=== PATIENT | female | born 1965 | race Caucasian/White ===

== ENCOUNTER 2018-07-23 13:24 | Emergency (ER) | payer MEDICAID ==
[~2018-07-23] VITALS: Ht 160 cm; Wt 57.7 kg
[~2018-07-23 13:24] MED LIST: NO HOME MEDS
[2018-07-23 13:33] VITALS: BP 144/79
[2018-07-23 14:31] LABS: BASOPHILS # (AUTO) 0.1 X10'3 (0-0.2); BASOPHILS % (AUTO) 1.1 % (0-1); EOSINOPHILS # (AUTO) 0.2 X10'3 (0-0.9); EOSINOPHILS % (AUTO) 3.1 % (0-6); HEMATOCRIT 38.9 % (35.0-45.0); HEMOGLOBIN 13.3 g/dl (12.0-16.0); LYMPHOCYTES % (AUTO) 20.2 % (21-51); MEAN CORPUSCULAR HEMOGLOBIN 32.4 PG (27.0-31.0); MEAN CORPUSCULAR HGB CONC 34.3 g/dL (33.0-36.5); MEAN CORPUSCULAR VOLUME 94.5 FL (78-98); MEAN PLATELET VOLUME 7.8 FL (7.4-10.4); MONOCYTES # (AUTO) 0.8 X10'3 (0-0.9); MONOCYTES % (AUTO) 17.3 % (2-12); NEUTROPHILS # (AUTO) 2.9 X10'3 (1.8-7.7); NEUTROPHILS % (AUTO) 58.3 % (42-75); PLATELET COUNT 204 X10'3 (140-440); RED BLOOD COUNT 4.12 X10'6 (4.20-5.60); RED CELL DISTRIBUTION WIDTH 12.7 % (11.5-14.5); WHITE BLOOD COUNT 4.9 X10'3 (4.5-11.0)
[2018-07-23 14:34] LABS: CLARITY,URINE CLEAR (Clear); COLOR,URINE STRAW (Yellow); GLUCOSE, URINE NEGATIVE (Neg); KETONES,URINE NEGATIVE (Neg); LEUKOCYTE ESTERASE ,URINE NEGATIVE (Neg); NITRITES, URINE NEGATIVE (Neg); OCCULT BLOOD,URINE NEGATIVE (Neg); PROTEIN,URINE NEGATIVE (Neg); UROBILINOGEN,URINE 0.2 E.U/dL (0.2-1.0)
[2018-07-23 14:43] LABS: UA COLLECTION TYPE CLN CATCH MIDSTREAM
[2018-07-23 14:46] LABS: ALANINE AMINOTRANSFERASE 32 U/L (12-78); ALBUMIN 3.5 G/DL (3.4-5.0); ALBUMIN/GLOBULIN RATIO 1.1 (1.1-1.5); ALKALINE PHOSPHATASE 78 IU/L (46-116); ANION GAP 8 (8-16); ASPARTATE AMINO TRANSFERASE 35 U/L (10-37); BILIRUBIN,TOTAL 0.2 MG/DL (0.1-1.0); BLOOD UREA NITROGEN 5 MG/DL (7-18); BUN/CREATININE RATIO 7.9 (6.6-38.0); CALCIUM 8.7 MG/DL (8.5-10.1); CHLORIDE 98 MMOL/L (99-107); CREATININE 0.63 MG/DL (0.40-0.90); GLUCOSE 95 MG/DL (70-104); LIPASE 150 U/L (73-393); POTASSIUM 4.1 MMOL/L (3.5-5.1); SODIUM 131 MMOL/L (135-145); TOTAL CARBON DIOXIDE 25.3 MMOL/L (24-32); TOTAL PROTEIN 6.6 G/DL (6.4-8.2); eGFR > 90 ML/MIN
[2018-07-23] MEDS ORDERED: BENZ-16 PO (15:19)
[2018-07-23] MEDS ORDERED: GUAI237S46 PO (15:19)
[2018-07-23] MEDS ORDERED: ketorolac tromethamine 15mg/ml inj. IM ONE (15:20)
[2018-07-23] MEDS ORDERED: guaiFENesin/codeine phos 10ml UD oral syrup PO ONE (15:20)
== END 2018-07-23 15:38 | disposition home or self-care (01) ==
LOC: ER 13:25
DX: J20.9 Acute bronchitis, unspecified (principal); M94.0 Chondrocostal junction syndrome [Tietze]; G89.29 Other chronic pain; M54.9 Dorsalgia, unspecified; F17.210 Nicotine dependence, cigarettes, uncomplicated; Z98.51 Tubal ligation status; Z90.710 Acquired absence of both cervix and uterus; Z56.0 Unemployment, unspecified; Z88.1 Allergy status to other antibiotic agents
CPT/HCPCS: 36415; 71046; 80053; 81003; 83690; 85025; 85610; 96372; 99284; J1885

== ENCOUNTER 2018-10-25 14:18 | Emergency (ER) | payer MEDICAID ==
[~2018-10-25] VITALS: Ht 160 cm; Wt 60.0 kg
[2018-10-25 14:47] VITALS: BP 168/97
[2018-10-25] MEDS ORDERED: TRIA15OI2 TOP (15:34)
[2018-10-25] MEDS ORDERED: DOXY100C43 PO (15:34)
[2018-10-25] MEDS ORDERED: VALA10002 PO (15:34)
== END 2018-10-25 15:53 | disposition home or self-care (01) ==
LOC: ER 14:18
DX: L01.00 Impetigo, unspecified (principal); B00.9 Herpesviral infection, unspecified; J44.1 Chronic obstructive pulmonary disease with (acute) exacerbation; G89.29 Other chronic pain; F10.99 Alcohol use, unspecified with unspecified alcohol-induced disorder; Z90.710 Acquired absence of both cervix and uterus; Z98.51 Tubal ligation status; Z56.0 Unemployment, unspecified; Z88.1 Allergy status to other antibiotic agents; Z88.2 Allergy status to sulfonamides; Z88.8 Allergy status to other drugs, medicaments and biological substances; Y90.9 Presence of alcohol in blood, level not specified
CPT/HCPCS: 99283

== ENCOUNTER 2018-12-17 11:26 | Emergency (ER) | payer MEDICAID ==
[~2018-12-17] VITALS: Ht 160 cm; Wt 59.3 kg
[~2018-12-17 11:26] MED LIST changes: +TRIA15OI2 TOP; +VALA10002 PO
[2018-12-17] MEDS ORDERED: mupirocin 2% ointment 22GM TP STA (12:42)
[2018-12-17] MEDS ORDERED: AMOX-422 PO (12:43)
[2018-12-17] MEDS ORDERED: predniSONE 20 mg tablet PO ONE (12:45)
[2018-12-17] MEDS ORDERED: diphenhydrAMINE 50 mg/ml inj IM ONE (12:45)
--- NOTE | 2018-12-17 12:52 | NUR ---
Mupirocin Ointment applied to left bottom lip and will monitor for allergic s/sx for 20 mins and then will administer benadryl and prednisone for current allergic like sxs.
[2018-12-17 13:23] VITALS: BP 178/107
== END 2018-12-17 13:17 | disposition home or self-care (01) ==
LOC: ER 11:27
DX: L01.09 Other impetigo (principal); G89.29 Other chronic pain; F17.200 Nicotine dependence, unspecified, uncomplicated; Z56.0 Unemployment, unspecified; Z90.710 Acquired absence of both cervix and uterus; Z98.51 Tubal ligation status; Z88.1 Allergy status to other antibiotic agents; Z88.8 Allergy status to other drugs, medicaments and biological substances; Z79.899 Other long term (current) drug therapy
CPT/HCPCS: 96372; 99283; J1200; J7512

== ENCOUNTER 2019-01-07 13:08 | Emergency (ER) | payer MEDICAID ==
[~2019-01-07] VITALS: Ht 160 cm; Wt 61.4 kg
[2019-01-07 14:48] VITALS: BP 168/98
[2019-01-07] MEDS ORDERED: normal saline 1000ML IV soln IVB ONE (15:10)
[2019-01-07 15:46] LABS: BASOPHILS % (AUTO) 0.8 % (0-1); EOSINOPHILS # (AUTO) 0.1 X10'3 (0-0.9); EOSINOPHILS % (AUTO) 1.5 % (0-6); HEMOGLOBIN 14.4 g/dl (12.0-16.0); LYMPHOCYTES % (AUTO) 18.1 % (21-51); MEAN CORPUSCULAR HEMOGLOBIN 33.4 PG (27.0-31.0); MEAN CORPUSCULAR HGB CONC 34.3 g/dL (33.0-36.5); MEAN CORPUSCULAR VOLUME 97.5 FL (78-98); MEAN PLATELET VOLUME 7.8 FL (7.4-10.4); MONOCYTES # (AUTO) 0.7 X10'3 (0-0.9); MONOCYTES % (AUTO) 11.9 % (2-12); NEUTROPHILS # (AUTO) 3.8 X10'3 (1.8-7.7); NEUTROPHILS % (AUTO) 67.7 % (42-75); PLATELET COUNT 192 X10'3 (140-440); RED BLOOD COUNT 4.31 X10'6 (4.20-5.60); RED CELL DISTRIBUTION WIDTH 13.9 % (11.5-14.5); WHITE BLOOD COUNT 5.6 X10'3 (4.5-11.0)
[2019-01-07 15:54] LABS: ALBUMIN 4.2 G/DL (3.4-5.0); ANION GAP 12 (8-16); BLOOD UREA NITROGEN 3 MG/DL (7-18); CALCIUM 8.8 MG/DL (8.5-10.1); CHLORIDE 93 MMOL/L (99-107); GLUCOSE 95 MG/DL (70-104); MAGNESIUM 2.1 MG/DL (1.5-2.4); SODIUM 130 MMOL/L (135-145); TOTAL CARBON DIOXIDE 25.1 MMOL/L (24-32); eGFR > 90 ML/MIN
== END 2019-01-07 16:19 | disposition home or self-care (01) ==
LOC: ER 13:08
DX: R42 Dizziness and giddiness (principal); I10 Essential (primary) hypertension; J43.9 Emphysema, unspecified; G89.29 Other chronic pain; Z90.710 Acquired absence of both cervix and uterus; Z98.51 Tubal ligation status; Z56.0 Unemployment, unspecified; Z88.1 Allergy status to other antibiotic agents; Z88.2 Allergy status to sulfonamides; Z79.2 Long term (current) use of antibiotics; Z79.899 Other long term (current) drug therapy
CPT/HCPCS: 36415; 80048; 83735; 85025; 93005; 96360; 99284; J7030

== ENCOUNTER 2019-06-09 11:56 | Emergency (ER) | payer MEDICAID ==
[~2019-06-09] VITALS: Ht 157.5 cm; Wt 62.3 kg
[2019-06-09 12:25] VITALS: BP 144/87
[2019-06-09] MEDS ORDERED: PRED20TA PO (12:39)
[2019-06-09] MEDS ORDERED: diphenhydrAMINE 25mg capsule PO ONE (12:40)
[2019-06-09] MEDS ORDERED: predniSONE 20 mg tablet PO ONE (12:40)
== END 2019-06-09 12:50 | disposition home or self-care (01) ==
LOC: ER 12:01
DX: R21 Rash and other nonspecific skin eruption (principal); I10 Essential (primary) hypertension; J43.9 Emphysema, unspecified; G89.29 Other chronic pain; F17.200 Nicotine dependence, unspecified, uncomplicated; Z90.710 Acquired absence of both cervix and uterus; Z98.51 Tubal ligation status; Z56.0 Unemployment, unspecified; Z88.1 Allergy status to other antibiotic agents; Z88.2 Allergy status to sulfonamides; Z79.2 Long term (current) use of antibiotics; Z79.899 Other long term (current) drug therapy
CPT/HCPCS: 99283; J7512; Q0163

== ENCOUNTER 2019-08-15 17:20 | Emergency (ER) | payer MEDICAID ==
[~2019-08-15] VITALS: Ht 157.5 cm; Wt 59.1 kg
[2019-08-15 18:02] LABS: BASOPHILS % (AUTO) 0.8 % (0-1); EOSINOPHILS # (AUTO) 0.1 X10'3 (0-0.9); HEMATOCRIT 40.6 % (35.0-45.0); HEMOGLOBIN 13.7 g/dl (12.0-16.0); LYMPHOCYTES % (AUTO) 22.8 % (21-51); MEAN CORPUSCULAR HEMOGLOBIN 32.9 PG (27.0-31.0); MEAN CORPUSCULAR HGB CONC 33.7 g/dL (33.0-36.5); MEAN CORPUSCULAR VOLUME 97.5 FL (78-98); MEAN PLATELET VOLUME 7.8 FL (7.4-10.4); MONOCYTES # (AUTO) 0.5 X10'3 (0-0.9); MONOCYTES % (AUTO) 12.1 % (2-12); NEUTROPHILS # (AUTO) 2.8 X10'3 (1.8-7.7); NEUTROPHILS % (AUTO) 61.3 % (42-75); PLATELET COUNT 127 X10'3 (140-440); RED BLOOD COUNT 4.16 X10'6 (4.20-5.60); RED CELL DISTRIBUTION WIDTH 14.4 % (11.5-14.5); WHITE BLOOD COUNT 4.5 X10'3 (4.5-11.0)
[2019-08-15 18:17] LABS: ALANINE AMINOTRANSFERASE 70 U/L (12-78); ALBUMIN 3.9 G/DL (3.4-5.0); ALBUMIN/GLOBULIN RATIO 1.2 (1.1-1.5); ALKALINE PHOSPHATASE 101 IU/L (46-116); AMYLASE 36 U/L (25-115); ANION GAP 9 (8-16); ASPARTATE AMINO TRANSFERASE 101 U/L (10-37); BILIRUBIN,TOTAL 0.4 MG/DL (0.1-1.0); BLOOD UREA NITROGEN 6 MG/DL (7-18); CALCIUM 8.4 MG/DL (8.5-10.1); CHLORIDE 99 MMOL/L (99-107); CREATININE 0.75 MG/DL (0.40-0.90); GLUCOSE 91 MG/DL (70-104); LIPASE 158 U/L (73-393); POTASSIUM 3.4 MMOL/L (3.5-5.1); SODIUM 135 MMOL/L (135-145); TOTAL CARBON DIOXIDE 26.7 MMOL/L (24-32); TOTAL PROTEIN 7.1 G/DL (6.4-8.2); eGFR 80 ML/MIN
[2019-08-15] MEDS ORDERED: morphine 4 MG/ML inj SYRINge IV PRN (19:10)
[2019-08-15] MEDS ORDERED: ondansetron/PF 4mg/2ml inj IV ONE (19:10)
[2019-08-15] MEDS ORDERED: normal saline 1000ML IV soln IVB ONE (19:10)
[2019-08-15 19:26] LABS: CLARITY,URINE CLEAR (Clear); COLOR,URINE STRAW (Yellow); GLUCOSE, URINE NEGATIVE (Neg); KETONES,URINE NEGATIVE (Neg); LEUKOCYTE ESTERASE ,URINE NEGATIVE (Neg); NITRITES, URINE NEGATIVE (Neg); OCCULT BLOOD,URINE TRACE-INTACT (Neg); PROTEIN,URINE NEGATIVE (Neg); UROBILINOGEN,URINE 0.2 E.U/dL (0.2-1.0)
[2019-08-15 19:32] LABS: UA COLLECTION TYPE CLN CATCH MIDSTREAM
[2019-08-15 19:34] LABS: WBC,URINE 0-4 /HPF (0-4)
[2019-08-15 19:35] LABS: BACTERIA,URINE NONE SEEN /HPF (Neg); RBC,URINE 0-2 /HPF (0-2); SQUAMOUS EPITHELIAL CELL,UR FEW /LPF (FEW)
--- NOTE | 2019-08-15 19:48 | NUR ---
UPDATED SILVIA ROGERS ON PT'S BP. WILL ORDER MEDICATION PRIOR TO D/C.
[2019-08-15] MEDS ORDERED: metoprolol tartrate 1mg/ml inj IV ONE (19:50)
--- NOTE | 2019-08-15 20:57 | NUR ---
SPOKE WITH MONAE VEGA REGARDING PT'S INCREASED BP READINGS POST METOPROLOL ADMINISTRATION. PA INSTRUCTED TO D/C AND INSTRUCT PT TO TAKE BP MEDICATION(CARVEDILOL) AT HOME. PT VERBALIZED UNDERSTANDING OF THIS.
[2019-08-15 21:01] VITALS: BP 167/102
== END 2019-08-15 21:06 | disposition home or self-care (01) ==
LOC: ER 17:21
DX: R10.12 Left upper quadrant pain (principal); I10 Essential (primary) hypertension; J43.9 Emphysema, unspecified; G89.29 Other chronic pain; R05 Cough; R50.9 Fever, unspecified; R53.1 Weakness; F17.200 Nicotine dependence, unspecified, uncomplicated; Z72.89 Other problems related to lifestyle; Z98.51 Tubal ligation status; Z90.710 Acquired absence of both cervix and uterus; Z56.0 Unemployment, unspecified; Z79.2 Long term (current) use of antibiotics; Z88.2 Allergy status to sulfonamides; Z88.8 Allergy status to other drugs, medicaments and biological substances; Z79.899 Other long term (current) drug therapy
CPT/HCPCS: 36415; 80053; 81001; 82150; 83690; 85025; 85610; 96374; 96375; 99284; J2270; J2405; J7030; J3490

== ENCOUNTER 2019-10-03 15:46 | Emergency (ER) | payer MEDICAID ==
[~2019-10-03] VITALS: Ht 157.5 cm; Wt 59.0 kg
--- NOTE | 2019-10-03 16:38 | NUR ---
pt has been evaluated by Dr Bermudez gave verbal order pt does not need isolation precautions,
--- NOTE | 2019-10-03 16:39 | NUR ---
rough carpenter aware, decided to keep pt in isolation precautions at this time
[2019-10-03 16:54] LABS: BASOPHILS % (AUTO) 0.8 % (0-1); EOSINOPHILS # (AUTO) 0.1 X10'3 (0-0.9); EOSINOPHILS % (AUTO) 4.3 % (0-6); HEMATOCRIT 38.3 % (35.0-45.0); HEMOGLOBIN 12.7 g/dl (12.0-16.0); LYMPHOCYTES # (AUTO) 1.2 X10'3 (1.1-4.8); LYMPHOCYTES % (AUTO) 38.8 % (21-51); MEAN CORPUSCULAR HEMOGLOBIN 35.2 PG (27.0-31.0); MEAN CORPUSCULAR HGB CONC 33.2 g/dL (33.0-36.5); MEAN PLATELET VOLUME 8.9 FL (7.4-10.4); MONOCYTES # (AUTO) 0.4 X10'3 (0-0.9); MONOCYTES % (AUTO) 13.8 % (2-12); NEUTROPHILS # (AUTO) 1.3 X10'3 (1.8-7.7); NEUTROPHILS % (AUTO) 42.3 % (42-75); PLATELET COUNT 105 X10'3 (140-440); RED BLOOD COUNT 3.62 X10'6 (4.20-5.60); RED CELL DISTRIBUTION WIDTH 17.4 % (11.5-14.5); WHITE BLOOD COUNT 3.1 X10'3 (4.5-11.0)
[2019-10-03 17:00] LABS: ALBUMIN 3.3 G/DL (3.4-5.0); ALBUMIN/GLOBULIN RATIO 1.2 (1.1-1.5); ANION GAP 13 (8-16); ASPARTATE AMINO TRANSFERASE 288 U/L (10-37); BILIRUBIN,TOTAL 0.5 MG/DL (0.1-1.0); BLOOD UREA NITROGEN 4 MG/DL (7-18); BUN/CREATININE RATIO 4.7 (6.6-38.0); CALCIUM 8.2 MG/DL (8.5-10.1); CHLORIDE 102 MMOL/L (99-107); CREATININE 0.85 MG/DL (0.40-0.90); GLUCOSE 122 MG/DL (70-104); POTASSIUM 3.4 MMOL/L (3.5-5.1); SODIUM 139 MMOL/L (135-145); TOTAL CARBON DIOXIDE 24.3 MMOL/L (24-32); eGFR 69 ML/MIN
[2019-10-03 17:01] LABS: ALANINE AMINOTRANSFERASE 143 U/L (12-78); ALKALINE PHOSPHATASE 93 IU/L (46-116)
[2019-10-03] MEDS ORDERED: GABA300C PO (17:12)
[2019-10-03] MEDS ORDERED: PANT-47 PO (17:29)
[2019-10-03 17:46] VITALS: BP 127/67
== END 2019-10-03 17:47 | disposition home or self-care (01) ==
LOC: ER 15:46
DX: R07.89 Other chest pain (principal); F10.239 Alcohol dependence with withdrawal, unspecified; I10 Essential (primary) hypertension; J44.9 Chronic obstructive pulmonary disease, unspecified; G89.29 Other chronic pain; F17.210 Nicotine dependence, cigarettes, uncomplicated; Z90.710 Acquired absence of both cervix and uterus; Z98.51 Tubal ligation status; Z56.0 Unemployment, unspecified; Z88.1 Allergy status to other antibiotic agents; Z88.2 Allergy status to sulfonamides; Z88.8 Allergy status to other drugs, medicaments and biological substances; Z79.899 Other long term (current) drug therapy; Y90.0 Blood alcohol level of less than 20 mg/100 ml
CPT/HCPCS: 36415; 71045; 80053; 84484; 85025; 93005; 99285

== ENCOUNTER 2019-11-03 19:03 | Emergency (ER) | payer MEDICAID ==
[~2019-11-03] VITALS: Ht 157.5 cm; Wt 59.1 kg
[~2019-11-03 19:03] MED LIST changes: +GABA300C PO; +PANT-47 PO
[2019-11-03 21:29] LABS: CLARITY,URINE CLEAR (Clear); COLOR,URINE YELLOW (Yellow); GLUCOSE, URINE NEGATIVE (Neg); KETONES,URINE NEGATIVE (Neg); LEUKOCYTE ESTERASE ,URINE NEGATIVE (Neg); NITRITES, URINE NEGATIVE (Neg); OCCULT BLOOD,URINE NEGATIVE (Neg); PROTEIN,URINE NEGATIVE (Neg)
[2019-11-03 21:30] LABS: UA COLLECTION TYPE CLN CATCH MIDSTREAM
[2019-11-03 22:01] LABS: BASOPHILS # (AUTO) 0.1 X10'3 (0-0.2); EOSINOPHILS # (AUTO) 0.1 X10'3 (0-0.9); HEMOGLOBIN 12.6 g/dl (12.0-16.0); MEAN CORPUSCULAR HEMOGLOBIN 35.8 PG (27.0-31.0); MEAN CORPUSCULAR HGB CONC 33.5 g/dL (33.0-36.5); MONOCYTES # (AUTO) 0.4 X10'3 (0-0.9)
[2019-11-03 22:04] LABS: BASOPHILS % (AUTO) 1.7 % (0-1); EOSINOPHILS % (AUTO) 3.7 % (0-6); HEMATOCRIT 37.7 % (35.0-45.0); LYMPHOCYTES # (AUTO) 0.9 X10'3 (1.1-4.8); LYMPHOCYTES % (AUTO) 27.3 % (21-51); MEAN PLATELET VOLUME 9.1 FL (7.4-10.4); MONOCYTES % (AUTO) 12.7 % (2-12); NEUTROPHILS # (AUTO) 1.9 X10'3 (1.8-7.7); NEUTROPHILS % (AUTO) 54.6 % (42-75); PLATELET COUNT 147 X10'3 (140-440); RED BLOOD COUNT 3.52 X10'6 (4.20-5.60); RED CELL DISTRIBUTION WIDTH 16.1 % (11.5-14.5); WHITE BLOOD COUNT 3.4 X10'3 (4.5-11.0)
[2019-11-03 22:15] LABS: ALANINE AMINOTRANSFERASE 156 U/L (12-78); ALBUMIN 2.8 G/DL (3.4-5.0); ALBUMIN/GLOBULIN RATIO 0.9 (1.1-1.5); ALKALINE PHOSPHATASE 115 IU/L (46-116); ANION GAP 13 (8-16); ASPARTATE AMINO TRANSFERASE 316 U/L (10-37); BILIRUBIN,TOTAL 1.6 MG/DL (0.1-1.0); BLOOD UREA NITROGEN 2 MG/DL (7-18); BUN/CREATININE RATIO 2.2 (6.6-38.0); CALCIUM 9.1 MG/DL (8.5-10.1); CHLORIDE 94 MMOL/L (99-107); CREATININE 0.91 MG/DL (0.40-0.90); ETHANOL 0.038 GM/DL (0.0-0.010); GLUCOSE 106 MG/DL (70-104); LIPASE 116 U/L (73-393); SODIUM 135 MMOL/L (135-145); TOTAL CARBON DIOXIDE 28.5 MMOL/L (24-32); eGFR 64 ML/MIN
[2019-11-03 22:20] LABS: POTASSIUM 2.8 MMOL/L (3.5-5.1)
[2019-11-03] MEDS ORDERED: sucralfate 1gm/10ml UD suspension PO STA (22:25)
[2019-11-03] MEDS ORDERED: ondansetron 4mg rapidly disintigrating tab PO ONE (22:25)
[2019-11-03] MEDS ORDERED: mag hydrox/Alum hydrox/simeth 30ml oral suspension PO ONE (22:25)
[2019-11-03] MEDS ORDERED: LIDOcaine Viscous 15ml cup MM ONE (22:25)
[2019-11-03] MEDS ORDERED: POTASSIUM BICARB 20meq eff tab 20 MEQ TABLET.EFF PO ONE (22:25)
[2019-11-03] MEDS ORDERED: DEXL30CA3 PO (22:29)
[2019-11-03] MEDS ORDERED: ONDA4TAB6 PO (22:29)
[2019-11-03] MEDS ORDERED: SUCR1TAB34 PO (22:29)
[2019-11-03 23:32] VITALS: BP 116/80
== END 2019-11-03 23:25 | disposition home or self-care (01) ==
LOC: ER 19:05
DX: K29.20 Alcoholic gastritis without bleeding (principal); K70.10 Alcoholic hepatitis without ascites; F10.29 Alcohol dependence with unspecified alcohol-induced disorder; E87.6 Hypokalemia; R63.0 Anorexia; R53.83 Other fatigue; R10.9 Unspecified abdominal pain; I10 Essential (primary) hypertension; G89.29 Other chronic pain; F17.200 Nicotine dependence, unspecified, uncomplicated; Z90.710 Acquired absence of both cervix and uterus; Z98.51 Tubal ligation status; Z72.89 Other problems related to lifestyle; Z56.0 Unemployment, unspecified; Z88.1 Allergy status to other antibiotic agents; Z88.8 Allergy status to other drugs, medicaments and biological substances; Z79.2 Long term (current) use of antibiotics; Z79.899 Other long term (current) drug therapy; Y90.0 Blood alcohol level of less than 20 mg/100 ml
CPT/HCPCS: 36415; 80053; 80320; 81003; 83690; 85025; 99284

== ENCOUNTER 2020-02-25 15:01 | Inpatient (IN) | payer MEDICAID ==
[~2020-02-25] VITALS: Ht 157.5 cm; Wt 55.5 kg
[~2020-02-25 15:01] MED LIST changes: +DEXL30CA3 PO; +ONDA4TAB6 PO; +SUCR1TAB34 PO
[2020-02-25] MEDS ORDERED: thiamine inj. 100 MG in normal saline 100ml IV soln 100 ML IV ONE ×2 (15:15→17:30)
[2020-02-25 15:47] LABS: HEMOGLOBIN 11.7 g/dl (12.0-16.0); PLATELET COUNT 166 X10'3 (140-440); RED CELL DISTRIBUTION WIDTH 14.6 % (11.5-14.5)
[2020-02-25 15:48] LABS: HEMATOCRIT 34.1 % (35.0-45.0); MEAN CORPUSCULAR HEMOGLOBIN 35.2 PG (27.0-31.0); MEAN CORPUSCULAR HGB CONC 34.3 g/dL (33.0-36.5); MEAN CORPUSCULAR VOLUME 102.7 FL (78-98); MEAN PLATELET VOLUME 9.7 FL (7.4-10.4); RED BLOOD COUNT 3.32 X10'6 (4.20-5.60); WHITE BLOOD COUNT 9.1 X10'3 (4.5-11.0)
[2020-02-25 15:59] LABS: ALBUMIN 1.7 G/DL (3.4-5.0); ALBUMIN/GLOBULIN RATIO 0.4 (1.1-1.5); ALKALINE PHOSPHATASE 193 IU/L (46-116); BILIRUBIN,TOTAL 2.7 MG/DL (0.1-1.0); CALCIUM 7.8 MG/DL (8.5-10.1); CHLORIDE 87 MMOL/L (99-107); TOTAL PROTEIN 6.3 G/DL (6.4-8.2)
[2020-02-25] MEDS ORDERED: potassium 10mEq/100ml NS w/LIDOcaine (10mg/bag) IV ONE (16:10)
[2020-02-25] MEDS ORDERED: magnesium 2GM in 50ml NS 50 ML IV ONE ×2 (16:10→16:30)
[2020-02-25 16:12] LABS: ANISOCYTOSIS 1+; PLATELET ESTIMATE NORMAL; TOTAL CELLS COUNTED 100
[2020-02-25 16:13] LABS: ALANINE AMINOTRANSFERASE 40 U/L (12-78); ANION GAP 5 (8-16); ASPARTATE AMINO TRANSFERASE 102 U/L (10-37); BLOOD UREA NITROGEN 4 MG/DL (7-18); BUN/CREATININE RATIO 4.5 (6.6-38.0); CREATININE 0.88 MG/DL (0.40-0.90); GLUCOSE 129 MG/DL (70-104); MAGNESIUM 1.8 MG/DL (1.5-2.4); SODIUM 126 MMOL/L (135-145); TOTAL CARBON DIOXIDE 33.9 MMOL/L (24-32); eGFR 67 ML/MIN
[2020-02-25 16:15] LABS: POTASSIUM 1.7 MMOL/L (3.5-5.1)
[2020-02-25] MEDS ORDERED: potassium Cl 10 mEq/100mL bag IV ONE ×2 (16:15→16:30)
[2020-02-25] MEDS ORDERED: iohexol 300mg/ml 100ml inj. ONE (16:23)
[2020-02-25] MEDS ORDERED: folic acid 1mg tablet PO SCH (16:23)
[2020-02-25] MEDS ORDERED: thiamine 100mg tablet PO SCH (16:23)
[2020-02-25] MEDS ORDERED: potassium Cl 20 mEq SR tablet PO ONE (16:45)
[2020-02-25 16:57] LABS: ETHANOL < 0.010 GM/DL (0.0-0.010)
[2020-02-25 16:59] LABS: PARTIAL THROMBOPLASTIN TIME 27 SECONDS (22-32)
[2020-02-25] MEDS ORDERED: thiamine inj. 100 MG, MVI, adult No.4 with vit. K 10 ML in dextrose 5% water 500ml 500 ML IV SCH ×3 (17:30)
[2020-02-25] MEDS ORDERED: folic acid 1mg/0.2ml inj IV SCH (17:30)
[2020-02-25] MEDS ORDERED: CARV6.253 PO (17:52)
[2020-02-25] MEDS ORDERED: OMEP-50 PO (17:52)
[2020-02-25] MEDS ORDERED: ALB0.5UD IH (17:52)
[2020-02-25] MEDS ORDERED: BUDE10.2 INH (17:52)
[2020-02-25] MEDS ORDERED: dextrose 50%-water 50ml dispensing syringe IV PRN (18:05)
[2020-02-25] MEDS ORDERED: loperamide 2mg capsule PO PRN ×2 (18:05)
[2020-02-25] MEDS ORDERED: haloperidol 5mg tablet PO PRN (18:05)
[2020-02-25] MEDS ORDERED: morphine 2 MG/ML inj. syringe IV PRN ×2 (18:05)
[2020-02-25] MEDS ORDERED: magnesium Cl slow-release 64mg tablet PO PRN (18:05)
[2020-02-25] MEDS ORDERED: magnesium hydroxide 30ml (MOM) UD suspension PO PRN (18:05)
[2020-02-25] MEDS ORDERED: dicyclomine 10 MG capsule PO PRN (18:05)
[2020-02-25] MEDS ORDERED: LORazepam 2 mg/ml vial IV PRN (18:05)
[2020-02-25] MEDS ORDERED: mag hydrox/Alum hydrox/simeth 30ml oral suspension PO PRN ×2 (18:05)
[2020-02-25] MEDS ORDERED: potassium Cl 20 mEq SR tablet PO PRN (18:05)
[2020-02-25] MEDS ORDERED: ondansetron/PF 4mg/2ml inj IV PRN (18:05)
[2020-02-25] MEDS ORDERED: potassium CL 10mEq/100ml bag 100 ML IV PRN ×2 (18:05)
[2020-02-25] MEDS ORDERED: haloperidol lactate 5mg/ml inj IM PRN (18:05)
[2020-02-25] MEDS ORDERED: thiamine 100mg/ml 2ml inj. IV ONE (18:05)
[2020-02-25] MEDS ORDERED: magnesium 4gm in 100ml NS 100 ML IV PRN (18:05)
[2020-02-25] MEDS ORDERED: acetaminophen 325mg tablet PO PRN ×2 (18:05)
[2020-02-25] MEDS ORDERED: magnesium 2GM in 50ml NS 50 ML IV PRN (18:05)
[2020-02-25 18:36] LABS: PHOSPHORUS 2.8 MG/DL (2.3-4.5)
--- NOTE | 2020-02-25 19:00 | NUR ---
Patient in room PCU 3025. I have received report from TESTER ROCKET ENGINE by telephone and had the opportunity to ask questions and assume patient care once the patient is in the unit.
[2020-02-25 19:18] LABS: URINE AMPHETAMINE SCREEN NEGATIVE (Neg); URINE BARBITUATE SCREEN NEGATIVE (Neg); URINE BENZODIAZEPINES SCREEN NEGATIVE (Neg); URINE CANNABINOID SCREEN NEGATIVE (Neg); URINE COCAINE SCREEN NEGATIVE (Neg); URINE METHADONE SCREEN NEGATIVE (Neg); URINE OPIATE SCREEN NEGATIVE (Neg); URINE PHENCYCLIDINE SCREEN NEGATIVE (Neg)
[2020-02-25 20:00] VITALS: BP_SYST 85; BP_SYST 87; BP_SYST 92; BP_DIAS 58; BP_DIAS 61
[2020-02-25] MEDS: K and/or MAG REPLACEMENT MC SCH (20:00)
--- NOTE | 2020-02-25 20:00 | NUR ---
Patient in room PCU 3025. I have received report from Loretta RIDDLE and had the opportunity to ask questions and assume patient care.
[2020-02-25] MEDS: potassium Cl 20 mEq SR tablet PO PRN (20:07)
[2020-02-25] MEDS: potassium Cl 20mEq in NS 1,000 ML IV SCH (20:29)
[2020-02-25 22:00] VITALS: BP 87/58
[2020-02-26] VITALS (10 sets, daily range): BP systolic 65–102; BP diastolic 42–69
[2020-02-26] MEDS: potassium Cl 20 mEq SR tablet PO PRN ×4 (00:04→18:24)
--- NOTE | 2020-02-26 01:12 | NUR ---
unable to complete darting, patient too sleepy
[2020-02-26 02:41] LABS: HEMOGLOBIN 10.4 g/dl (12.0-16.0); MEAN CORPUSCULAR HEMOGLOBIN 35.4 PG (27.0-31.0); MEAN CORPUSCULAR HGB CONC 34.5 g/dL (33.0-36.5); MEAN CORPUSCULAR VOLUME 102.6 FL (78-98); MEAN PLATELET VOLUME 10.2 FL (7.4-10.4); PLATELET COUNT 165 X10'3 (140-440); RED BLOOD COUNT 2.93 X10'6 (4.20-5.60); RED CELL DISTRIBUTION WIDTH 14.8 % (11.5-14.5); WHITE BLOOD COUNT 7.5 X10'3 (4.5-11.0)
[2020-02-26 02:56] LABS: ALANINE AMINOTRANSFERASE 32 U/L (12-78); ALBUMIN 1.4 G/DL (3.4-5.0); ALBUMIN/GLOBULIN RATIO 0.4 (1.1-1.5); ALKALINE PHOSPHATASE 154 IU/L (46-116); ANION GAP 3 (8-16); ASPARTATE AMINO TRANSFERASE 79 U/L (10-37); BILIRUBIN,TOTAL 2.1 MG/DL (0.1-1.0); BLOOD UREA NITROGEN 1 MG/DL (7-18); BUN/CREATININE RATIO 1.4 (6.6-38.0); CALCIUM 6.8 MG/DL (8.5-10.1); CHLORIDE 95 MMOL/L (99-107); CREATININE 0.73 MG/DL (0.40-0.90); GLUCOSE 99 MG/DL (70-104); MAGNESIUM 2.6 MG/DL (1.5-2.4); SODIUM 128 MMOL/L (135-145); TOTAL CARBON DIOXIDE 29.8 MMOL/L (24-32); TOTAL PROTEIN 5.4 G/DL (6.4-8.2); eGFR 83 ML/MIN
[2020-02-26 02:58] LABS: POTASSIUM 2.7 MMOL/L (3.5-5.1)
[2020-02-26 03:29] LABS: ANISOCYTOSIS 1+; PLATELET ESTIMATE NORMAL; TARGET CELLS FEW; TOTAL CELLS COUNTED 100
[2020-02-26] MEDS: potassium Cl 20mEq in NS 1,000 ML IV SCH ×2 (04:05→16:36)
--- NOTE | 2020-02-26 05:17 | NUR ---
Orientee documentation: I have reviewed and agree with all interventions, assessments performed and documented by VENKATESH Burgos.
--- NOTE | 2020-02-26 05:39 | NUR ---
paged Tameka regarding low BP PAGER ID: [phone] MESSAGE: [phone] Malathi Jerry, Patient has low BPs in the 80s/50s, albumin is 1.4, not symptomatic. can I get order to replace albumin? patient has pleural effusion and ascites, thank you, Loretta Miller RN
[2020-02-26] MEDS ORDERED: albumin (human) 25% 100 ML IV solution IV ONE ×2 (05:45→21:35)
--- NOTE | 2020-02-26 06:26 | NUR ---
Problems reprioritized. Patient report given, questions answered & plan of care reviewed with Kennedi RIDDLE.
--- NOTE | 2020-02-26 06:31 | NUR ---
Problems reprioritized. Patient report given, questions answered & plan of care reviewed with VENKATESH Patton. Patient awake and vitals stable during report.
--- NOTE | 2020-02-26 07:00 | NUR ---
Problems reprioritized. Patient report given, questions answered & plan of care reviewed with Daniela RIDDLE and Loretta RIDDLE.
--- NOTE | 2020-02-26 07:40 | NUR ---
PAGER ID: [phone] MESSAGE: [phone] Malathi Jerry, takes Prilosec at home. Requesting this medication prior to breakfast. Pooja RIDDLE [id number]
[2020-02-26] MEDS: thiamine 100mg tablet PO SCH (07:45)
[2020-02-26] MEDS: multivitamins, therapeutics tablet PO SCH (07:46)
[2020-02-26] MEDS: folic acid 1mg tablet PO SCH (07:47)
[2020-02-26] MEDS: K and/or MAG REPLACEMENT MC SCH ×2 (08:45→19:37)
[2020-02-26] MEDS ORDERED: albuterol 2.5 MG/3 ML nebule NEB PRN (11:15)
[2020-02-26] MEDS ORDERED: spironolactone 50 MG tablet PO SCH (11:15)
[2020-02-26] MEDS ORDERED: furosemide 40mg tablet PO SCH (11:15)
[2020-02-26] MEDS: HYDROcodone/acetaminophen 5mg/325mg tablet PO PRN ×3 (11:52→20:52)
[2020-02-26] MEDS: sucralfate 1gm/10ml UD suspension PO SCH ×3 (11:52→19:37)
[2020-02-26] MEDS: LIPASE/PROTEASE/AMYLASE 4,200 unit CAPSULE.DR PO SCH ×2 (13:00→18:42)
--- NOTE | 2020-02-26 14:01 | NUR ---
Pancreaze not given due to patient refusing meal. Education provided about medication/nutrition.
[2020-02-26] MEDS: albuterol 2.5 MG/3 ML nebule NEB SCH ×2 (15:00→20:13)
[2020-02-26 17:46] LABS: C DIFF ANTIGEN SEE COMMENTS (NEGATIVE); C DIFF SPECIMEN=DIARRHEA? ACCEPTABLE; C DIFF TOXIN (LAMP) NEGATIVE (NEG); C DIFFICILE TOXINS A&B NEGATIVE (Neg)
--- NOTE | 2020-02-26 18:00 | NUR ---
Patient in room PCU 3025. I have received report from Kennedi RIDDLE and had the opportunity to ask questions and assume patient care.
--- NOTE | 2020-02-26 18:12 | NUR ---
Problems reprioritized. Patient report given, questions answered & plan of care reviewed with Daniela RIDDLE. Pt. is attempting to eat dinner, in good spirits and offers no complaints.
[2020-02-26] MEDS: pantoprazole 40 MG vial IV SCH (19:35)
[2020-02-26] MEDS ORDERED: carVEDilol 3.125mg tablet PO SCH (20:00)
[2020-02-26] MEDS: budesonide 0.5mg/2ml UD nebule IH SCH (20:14)
--- NOTE | 2020-02-26 21:30 | NUR ---
PAGER ID: [phone] MESSAGE: [phone] Malathi Jerry: Low BP 65/42, 57 HR, not symptomatic, new acities, pleural effusion, lw potassium 2.8, having cramping in hands. Albumin was given in AM and helped a lot with BP. Would you like to order albumin again? Dawn RIDDLE [id number]
--- NOTE | 2020-02-26 23:21 | NUR ---
2030 Potassium 40 meq given but computer did not save the administration.
[2020-02-27] VITALS (10 sets, daily range): BP systolic 82–109; BP diastolic 50–88
[2020-02-27] MEDS: potassium Cl 20mEq in NS 1,000 ML IV SCH ×3 (00:05→13:16)
[2020-02-27] MEDS: potassium Cl 20 mEq SR tablet PO PRN (00:20)
[2020-02-27] MEDS: albuterol 2.5 MG/3 ML nebule NEB SCH ×3 (03:00→20:23)
[2020-02-27 06:21] LABS: BASOPHILS # (AUTO) 0.1 X10'3 (0-0.2); BASOPHILS % (AUTO) 1.2 % (0-1); EOSINOPHILS # (AUTO) 0.1 X10'3 (0-0.9); EOSINOPHILS % (AUTO) 2.6 % (0-6); HEMOGLOBIN 10.2 g/dl (12.0-16.0); LYMPHOCYTES # (AUTO) 1.5 X10'3 (1.1-4.8); LYMPHOCYTES % (AUTO) 26.5 % (21-51); MEAN CORPUSCULAR HEMOGLOBIN 35.7 PG (27.0-31.0); MEAN CORPUSCULAR HGB CONC 34.1 g/dL (33.0-36.5); MEAN CORPUSCULAR VOLUME 104.9 FL (78-98); MONOCYTES # (AUTO) 0.4 X10'3 (0-0.9); MONOCYTES % (AUTO) 6.5 % (2-12); NEUTROPHILS # (AUTO) 3.6 X10'3 (1.8-7.7); NEUTROPHILS % (AUTO) 63.2 % (42-75); PLATELET COUNT 154 X10'3 (140-440); RED BLOOD COUNT 2.86 X10'6 (4.20-5.60); RED CELL DISTRIBUTION WIDTH 15.3 % (11.5-14.5); WHITE BLOOD COUNT 5.6 X10'3 (4.5-11.0)
[2020-02-27 06:34] LABS: ALANINE AMINOTRANSFERASE 30 U/L (12-78); ALBUMIN 1.7 G/DL (3.4-5.0); ALBUMIN/GLOBULIN RATIO 0.5 (1.1-1.5); ALKALINE PHOSPHATASE 130 IU/L (46-116); ANION GAP 3 (8-16); ASPARTATE AMINO TRANSFERASE 76 U/L (10-37); BILIRUBIN,TOTAL 1.9 MG/DL (0.1-1.0); BLOOD UREA NITROGEN 2 MG/DL (7-18); BUN/CREATININE RATIO 2.9 (6.6-38.0); CALCIUM 6.5 MG/DL (8.5-10.1); CHLORIDE 101 MMOL/L (99-107); GLUCOSE 89 MG/DL (70-104); POTASSIUM 4.2 MMOL/L (3.5-5.1); SODIUM 132 MMOL/L (135-145); TOTAL CARBON DIOXIDE 27.6 MMOL/L (24-32); TOTAL PROTEIN 5.1 G/DL (6.4-8.2); eGFR 87 ML/MIN
--- NOTE | 2020-02-27 06:37 | NUR ---
Patient in room PCU 3025. I have received report from Daniela RIDDLE and had the opportunity to ask questions and assume patient care.
--- NOTE | 2020-02-27 06:45 | NUR ---
Problems reprioritized. Patient report given, questions answered & plan of care reviewed with Marcia RIDDLE.
[2020-02-27 07:28] LABS: PLATELET ESTIMATE NORMAL
[2020-02-27 07:29] LABS: ANISOCYTOSIS 1+; POLYCHROMASIA FEW
[2020-02-27 07:30] LABS: TARGET CELLS 1+
[2020-02-27] MEDS: budesonide 0.5mg/2ml UD nebule IH SCH ×2 (07:48→20:23)
[2020-02-27] MEDS: multivitamins, therapeutics tablet PO SCH (07:52)
[2020-02-27] MEDS: thiamine 100mg tablet PO SCH (07:52)
[2020-02-27] MEDS: sucralfate 1gm/10ml UD suspension PO SCH ×4 (07:52→19:25)
[2020-02-27] MEDS: pantoprazole 40 MG vial IV SCH (07:52)
[2020-02-27] MEDS: LIPASE/PROTEASE/AMYLASE 4,200 unit CAPSULE.DR PO SCH ×3 (07:52→17:44)
[2020-02-27] MEDS: folic acid 1mg tablet PO SCH (07:52)
[2020-02-27] MEDS ORDERED: pantoprazole 40mg Tablet.DR PO SCH (08:00)
[2020-02-27] MEDS ORDERED: non-formulary drug (Budesonide/Formoterol Fumarate (Symbicort 160-4.5 Mcg Inhaler) 2 PUFFS INH SCH (08:00)
[2020-02-27] MEDS: K and/or MAG REPLACEMENT MC SCH ×2 (08:00→20:00)
[2020-02-27] MEDS: HYDROcodone/acetaminophen 10/325mg tab PO PRN (10:13)
--- NOTE | 2020-02-27 10:40 | NUR ---
patient seen by Dr herrera to continue current plan. patient had Paracentesis, 2300drained. patient tolerated procedure.
[2020-02-27 11:42] LABS: GLUCOSE,BODY FLUID 101 MG/DL; LDH,BODY FLUID 64 U/L
[2020-02-27 11:45] LABS: ALBUMIN,BODY FLUID < 0.6 G/DL
[2020-02-27 12:26] LABS: BF RBC COUNT 21 /CU MM; BF WBC COUNT 44 /CU MM (0-1000); BFAPPEAR CLEAR; BFCOLOR YELLOW; BFVOLUME 58 ML
[2020-02-27 12:29] LABS: LYMPHOCYTES,BODY FLUID 63 %; MONOCYTES,BODY FLUID 34 %; NEUTROPHILS,BODY FLUID 3 %
--- NOTE | 2020-02-27 15:38 | NUR ---
patients temp 102.7, medicated with tylenol dr sharon fleming.
--- NOTE | 2020-02-27 17:05 | NUR ---
Dr Brown ordered chest xray completed, bld cultures x2, completed. UA still to be collected. procalcitonin to be collected in am. will continue to monitor
--- NOTE | 2020-02-27 17:50 | NUR ---
UA obtained, repeat temp 98.7.
[2020-02-27] MEDS ORDERED: LORazepam 1 MG tablet PO PRN (18:05)
[2020-02-27] MEDS ORDERED: LORazepam 2 mg/ml vial IV PRN (18:05)
--- NOTE | 2020-02-27 18:11 | NUR ---
Problems reprioritized. Patient report given, questions answered & plan of care reviewed with Daniela RIDDLE.
[2020-02-27 18:13] LABS: UA COLLECTION TYPE VOIDED
[2020-02-27 18:14] LABS: CLARITY,URINE SLIGHTLY CLOUDY (Clear); COLOR,URINE AMBER (Yellow); GLUCOSE, URINE NEGATIVE (Neg); KETONES,URINE TRACE mg/dl (Neg); LEUKOCYTE ESTERASE ,URINE NEGATIVE (Neg); NITRITES, URINE NEGATIVE (Neg); OCCULT BLOOD,URINE NEGATIVE (Neg); PH,URINE 6.5 (4.8-8.0); PROTEIN,URINE NEGATIVE (Neg)
[2020-02-27 18:20] LABS: MUCUS STRANDS MANY /LPF (Neg); SQUAMOUS EPITHELIAL CELL,UR MODERATE /LPF (FEW)
[2020-02-27 18:21] LABS: COARSE GRANULAR CAST 0-3 /LPF (NEGATIVE)
[2020-02-27 18:22] LABS: BACTERIA,URINE FEW /HPF (Neg); CELLULAR CAST 0-4 /LPF (NEGATIVE); TRANSITIONAL EPI CELLS,URINE FEW /HPF; WBC,URINE 0-4 /HPF (0-4)
[2020-02-27 18:23] LABS: RBC,URINE 0-2 /HPF (0-2); RENAL CELLS, URINE FEW /HPF; YEAST FEW /HPF (NEGATIVE)
[2020-02-27] MEDS: HYDROcodone/acetaminophen 5mg/325mg tablet PO PRN ×2 (19:26→23:41)
[2020-02-27] MEDS: pantoprazole 40mg Tablet.DR PO SCH (19:26)
--- NOTE | 2020-02-27 22:43 | NUR ---
PAGER ID: [phone] MESSAGE: [id number]: Malathi Jerry: Patient's blood pressure 82/50, orthostatic vitals positive. Very unsteady and dizzy when stood up and continued when sitting down after. Albumin administered, BP 92/61. Continuing problem, Midodrine? Dawn RIDDLE 2899
[2020-02-28] VITALS (7 sets, daily range): BP systolic 94–123; BP diastolic 52–78
[2020-02-28] MEDS: potassium Cl 20mEq in NS 1,000 ML IV SCH (01:30)
[2020-02-28] MEDS: albuterol 2.5 MG/3 ML nebule NEB SCH ×4 (02:32→20:09)
--- NOTE | 2020-02-28 06:13 | NUR ---
positive blood cultures PAGER ID: [phone] MESSAGE: [id number] Malathi Jerry: Positive blood cultures, Both Aerobic bottles collected from right arm and left arm, growing gram negative rods and 12 hr david in both. Would you like to order something? Dawn RIDDLE 4812
--- NOTE | 2020-02-28 06:35 | NUR ---
Patient in room PCU 3025. I have received report from Dawn RIDDLE and had the opportunity to ask questions and assume patient care.
[2020-02-28 06:37] LABS: BASOPHILS % (AUTO) 0.5 % (0-1); EOSINOPHILS % (AUTO) 0.4 % (0-6); HEMATOCRIT 27.9 % (35.0-45.0); HEMOGLOBIN 9.5 g/dl (12.0-16.0); LYMPHOCYTES # (AUTO) 1.6 X10'3 (1.1-4.8); LYMPHOCYTES % (AUTO) 16.8 % (21-51); MEAN CORPUSCULAR VOLUME 105.9 FL (78-98); MEAN PLATELET VOLUME 10.2 FL (7.4-10.4); MONOCYTES # (AUTO) 0.7 X10'3 (0-0.9); MONOCYTES % (AUTO) 7.9 % (2-12); NEUTROPHILS # (AUTO) 6.9 X10'3 (1.8-7.7); NEUTROPHILS % (AUTO) 74.4 % (42-75); PLATELET COUNT 138 X10'3 (140-440); RED BLOOD COUNT 2.63 X10'6 (4.20-5.60); RED CELL DISTRIBUTION WIDTH 15.7 % (11.5-14.5); WHITE BLOOD COUNT 9.3 X10'3 (4.5-11.0)
[2020-02-28 06:58] LABS: ALANINE AMINOTRANSFERASE 23 U/L (12-78); ALBUMIN/GLOBULIN RATIO 0.6 (1.1-1.5); ALKALINE PHOSPHATASE 116 IU/L (46-116); ANION GAP 6 (8-16); ASPARTATE AMINO TRANSFERASE 67 U/L (10-37); BILIRUBIN,TOTAL 2.2 MG/DL (0.1-1.0); BLOOD UREA NITROGEN 1 MG/DL (7-18); BUN/CREATININE RATIO 1.4 (6.6-38.0); CALCIUM 6.6 MG/DL (8.5-10.1); CHLORIDE 102 MMOL/L (99-107); GLUCOSE 84 MG/DL (70-104); MAGNESIUM 1.8 MG/DL (1.5-2.4); SODIUM 129 MMOL/L (135-145); TOTAL CARBON DIOXIDE 20.8 MMOL/L (24-32); TOTAL PROTEIN 5.2 G/DL (6.4-8.2); eGFR 87 ML/MIN
--- NOTE | 2020-02-28 07:05 | NUR ---
Problems reprioritized. Patient report given, questions answered & plan of care reviewed with Sultana RIDDLE.
[2020-02-28] MEDS: LIPASE/PROTEASE/AMYLASE 4,200 unit CAPSULE.DR PO SCH ×3 (07:24→19:22)
[2020-02-28] MEDS: sucralfate 1gm/10ml UD suspension PO SCH ×4 (07:24→20:20)
[2020-02-28] MEDS: folic acid 1mg tablet PO SCH (07:25)
[2020-02-28] MEDS: pantoprazole 40mg Tablet.DR PO SCH ×2 (07:25→19:22)
[2020-02-28] MEDS: multivitamins, therapeutics tablet PO SCH (07:25)
[2020-02-28] MEDS: thiamine 100mg tablet PO SCH (07:26)
[2020-02-28] MEDS: K and/or MAG REPLACEMENT MC SCH ×2 (07:34→19:13)
[2020-02-28] MEDS ORDERED: CefTRIAXone/D5W-Rocephin 1gm 50 ML IV SCH (08:00)
--- NOTE | 2020-02-28 09:04 | NUR ---
Spoke to Dr Brown regarding this pts plan of care, made aware of Na+ 129, recieved orders to stop the current IV fluids, MD made aware of positive blood cultures in both arms, wants to start the patient on 2G of Rocephin daily, RN will add another one time dose of 1G of Rocephin for today and will add ammonia to lab.
[2020-02-28] MEDS: budesonide 0.5mg/2ml UD nebule IH SCH ×2 (09:14→20:09)
[2020-02-28] MEDS ORDERED: CefTRIAXone/D5W-Rocephin 1gm 50 ML IV ONE (10:00)
--- NOTE | 2020-02-28 10:00 | NUR ---
Spoke to patients daughter, Ernestina, and updated her on the patients plan of care
[2020-02-28] MEDS: HYDROcodone/acetaminophen 5mg/325mg tablet PO PRN (12:17)
--- NOTE | 2020-02-28 16:02 | NUR ---
Problems reprioritized. Patient report given, questions answered & plan of care reviewed with Loretta RIDDLE.
--- NOTE | 2020-02-28 17:13 | NUR ---
FLOATED BACK TO ORTHO AND PATIENT TRANSFERRED WITH ME TO ROOM 4007.
--- NOTE | 2020-02-28 18:26 | NUR ---
Problems reprioritized. Patient report given, questions answered & plan of care reviewed with LOKI RIDDLE.
[2020-02-28] MEDS: HYDROcodone/acetaminophen 10/325mg tab PO PRN (19:24)
[2020-02-29] MEDS: albuterol 2.5 MG/3 ML nebule NEB SCH ×4 (03:32→20:16)
[2020-02-29 06:00] VITALS: BP 116/68
--- NOTE | 2020-02-29 06:38 | NUR ---
Report given to Loretta RIDDLE.
[2020-02-29 07:16] LABS: BASOPHILS # (AUTO) 0.1 X10'3 (0-0.2); BASOPHILS % (AUTO) 0.8 % (0-1); EOSINOPHILS # (AUTO) 0.1 X10'3 (0-0.9); EOSINOPHILS % (AUTO) 0.5 % (0-6); HEMATOCRIT 32.3 % (35.0-45.0); HEMOGLOBIN 10.8 g/dl (12.0-16.0); LYMPHOCYTES # (AUTO) 2.5 X10'3 (1.1-4.8); LYMPHOCYTES % (AUTO) 22.8 % (21-51); MEAN CORPUSCULAR HEMOGLOBIN 35.1 PG (27.0-31.0); MEAN CORPUSCULAR HGB CONC 33.5 g/dL (33.0-36.5); MEAN CORPUSCULAR VOLUME 104.9 FL (78-98); MEAN PLATELET VOLUME 10.1 FL (7.4-10.4); MONOCYTES % (AUTO) 8.9 % (2-12); NEUTROPHILS # (AUTO) 7.2 X10'3 (1.8-7.7); PLATELET COUNT 167 X10'3 (140-440); RED BLOOD COUNT 3.08 X10'6 (4.20-5.60); RED CELL DISTRIBUTION WIDTH 15.3 % (11.5-14.5); WHITE BLOOD COUNT 10.8 X10'3 (4.5-11.0)
[2020-02-29 07:33] LABS: ALANINE AMINOTRANSFERASE 24 U/L (12-78); ALBUMIN/GLOBULIN RATIO 0.6 (1.1-1.5); ALKALINE PHOSPHATASE 147 IU/L (46-116); ANION GAP 8 (8-16); ASPARTATE AMINO TRANSFERASE 65 U/L (10-37); BILIRUBIN,TOTAL 2.1 MG/DL (0.1-1.0); BLOOD UREA NITROGEN 0 MG/DL (7-18); CALCIUM 7.3 MG/DL (8.5-10.1); CHLORIDE 103 MMOL/L (99-107); CREATININE 0.81 MG/DL (0.40-0.90); GLUCOSE 88 MG/DL (70-104); MAGNESIUM 1.8 MG/DL (1.5-2.4); POTASSIUM 4.2 MMOL/L (3.5-5.1); SODIUM 134 MMOL/L (135-145); TOTAL CARBON DIOXIDE 23.3 MMOL/L (24-32); TOTAL PROTEIN 5.6 G/DL (6.4-8.2); eGFR 73 ML/MIN
[2020-02-29] MEDS: K and/or MAG REPLACEMENT MC SCH ×2 (08:00→20:00)
[2020-02-29] MEDS: budesonide 0.5mg/2ml UD nebule IH SCH ×2 (08:24→20:15)
[2020-02-29] MEDS: CefTRIAXone 2gm/D5W 50ml BAG 50 ML IV SCH (08:55)
[2020-02-29] MEDS: folic acid 1mg tablet PO SCH (08:55)
[2020-02-29] MEDS: thiamine 100mg tablet PO SCH (08:55)
[2020-02-29] MEDS: LIPASE/PROTEASE/AMYLASE 4,200 unit CAPSULE.DR PO SCH ×3 (08:55→17:36)
[2020-02-29] MEDS: sucralfate 1gm/10ml UD suspension PO SCH ×4 (08:55→20:18)
[2020-02-29] MEDS: pantoprazole 40mg Tablet.DR PO SCH ×2 (08:55→20:18)
[2020-02-29] MEDS: multivitamins, therapeutics tablet PO SCH (08:55)
[2020-02-29 10:00] VITALS: BP_SYST 110; BP_SYST 94; BP_SYST 96; BP_DIAS 63; BP_DIAS 65; BP_DIAS 70
--- NOTE | 2020-02-29 13:39 | NUR ---
PAGER ID: [phone] MESSAGE: [phone] TANYA GARCIA PLEASE SEE PATIENTS ORTHOSTATICS [place] 5199 Addendum: 02/29/20 at 1340 by Loretta Morillo RN Amended: Links added.
--- NOTE | 2020-02-29 17:44 | NUR ---
PAGER ID: [phone] MESSAGE: [phone] TANYA GARCIA PATIENT RIGHT ARM HAS REDNESS FROM WRIST TO AC. I MARKED IT WITH A SHARPIE, IT IS VERY SENSITIVE. GALI [id number]
[2020-02-29 18:00] VITALS: BP 101/69
[2020-02-29] MEDS ORDERED: LORazepam 1 MG tablet PO PRN (18:05)
[2020-02-29] MEDS ORDERED: LORazepam 2 mg/ml vial IV PRN (18:05)
--- NOTE | 2020-02-29 18:51 | NUR ---
Patient in room ORTHO 4007. I have received report from Loretta RIDDLE and had the opportunity to ask questions and assume patient care.
[2020-02-29] MEDS: HYDROcodone/acetaminophen 10/325mg tab PO PRN (20:22)
[2020-02-29 22:00] VITALS: BP_SYST 104; BP_SYST 107; BP_SYST 113; BP_SYST 117; BP_DIAS 67; BP_DIAS 73; BP_DIAS 77; BP_DIAS 81
[2020-03-01] MEDS: albuterol 2.5 MG/3 ML nebule NEB SCH ×2 (03:00→07:16)
--- NOTE | 2020-03-01 06:34 | NUR ---
Problems reprioritized. Patient report given, questions answered & plan of care reviewed with Susan RIDDLE.
[2020-03-01 06:53] VITALS: BP 113/73
[2020-03-01] MEDS: thiamine 100mg tablet PO SCH (07:10)
[2020-03-01] MEDS: sucralfate 1gm/10ml UD suspension PO SCH ×2 (07:10→12:00)
[2020-03-01] MEDS: folic acid 1mg tablet PO SCH (07:11)
[2020-03-01] MEDS: LIPASE/PROTEASE/AMYLASE 4,200 unit CAPSULE.DR PO SCH ×2 (07:11→12:00)
[2020-03-01] MEDS: multivitamins, therapeutics tablet PO SCH (07:11)
[2020-03-01] MEDS: pantoprazole 40mg Tablet.DR PO SCH (07:12)
[2020-03-01] MEDS: CefTRIAXone 2gm/D5W 50ml BAG 50 ML IV SCH (07:12)
[2020-03-01] MEDS: budesonide 0.5mg/2ml UD nebule IH SCH (07:16)
[2020-03-01 07:44] LABS: BASOPHILS # (AUTO) 0.1 X10'3 (0-0.2); EOSINOPHILS # (AUTO) 0.1 X10'3 (0-0.9); EOSINOPHILS % (AUTO) 1.4 % (0-6); HEMATOCRIT 30.2 % (35.0-45.0); HEMOGLOBIN 10.2 g/dl (12.0-16.0); LYMPHOCYTES # (AUTO) 1.6 X10'3 (1.1-4.8); LYMPHOCYTES % (AUTO) 23.7 % (21-51); MEAN CORPUSCULAR HEMOGLOBIN 35.4 PG (27.0-31.0); MEAN CORPUSCULAR HGB CONC 33.7 g/dL (33.0-36.5); MEAN CORPUSCULAR VOLUME 105.1 FL (78-98); MEAN PLATELET VOLUME 9.9 FL (7.4-10.4); MONOCYTES # (AUTO) 0.7 X10'3 (0-0.9); MONOCYTES % (AUTO) 10.1 % (2-12); NEUTROPHILS # (AUTO) 4.4 X10'3 (1.8-7.7); NEUTROPHILS % (AUTO) 63.8 % (42-75); PLATELET COUNT 149 X10'3 (140-440); RED BLOOD COUNT 2.87 X10'6 (4.20-5.60); RED CELL DISTRIBUTION WIDTH 15.1 % (11.5-14.5); WHITE BLOOD COUNT 6.8 X10'3 (4.5-11.0)
[2020-03-01 07:52] LABS: ALANINE AMINOTRANSFERASE 21 U/L (12-78); ALBUMIN 1.7 G/DL (3.4-5.0); ALBUMIN/GLOBULIN RATIO 0.5 (1.1-1.5); ALKALINE PHOSPHATASE 148 IU/L (46-116); ANION GAP 6 (8-16); ASPARTATE AMINO TRANSFERASE 56 U/L (10-37); BILIRUBIN,TOTAL 1.7 MG/DL (0.1-1.0); BLOOD UREA NITROGEN 1 MG/DL (7-18); BUN/CREATININE RATIO 1.4 (6.6-38.0); CALCIUM 7.6 MG/DL (8.5-10.1); CHLORIDE 105 MMOL/L (99-107); CREATININE 0.71 MG/DL (0.40-0.90); GLUCOSE 85 MG/DL (70-104); MAGNESIUM 1.8 MG/DL (1.5-2.4); POTASSIUM 3.5 MMOL/L (3.5-5.1); SODIUM 137 MMOL/L (135-145); TOTAL PROTEIN 5.1 G/DL (6.4-8.2); eGFR 85 ML/MIN
[2020-03-01] MEDS: K and/or MAG REPLACEMENT MC SCH (08:00)
[2020-03-01 10:00] VITALS: BP 95/56
[2020-03-01] MEDS ORDERED: LIPA1CAP28 PO (11:20)
[2020-03-01] MEDS ORDERED: HYDR-4383 PO (11:20)
[2020-03-01] MEDS ORDERED: LEVO500T89 PO (11:20)
[2020-03-01] MEDS ORDERED: SUCR1ORA12 PO (11:20)
[2020-03-01] MEDS ORDERED: SPIR100T5 PO (11:20)
[2020-03-01] MEDS ORDERED: FURO40TA4 PO (11:20)
[2020-03-01] MEDS ORDERED: PANT40TA54 PO (11:20)
--- NOTE | 2020-03-01 13:12 | NUR ---
pt d/c with instructions, understanding of instructions as well as a script for norco, in wheelchair accompanied by nursing staff to go home and f/u w/pcp
== END 2020-03-01 13:05 | disposition home or self-care (01) | DRG 720 ==
LOC: ER 15:01 → ED HOLD 18:01 → EDBEDREQ 18:58 → PCU 3S 19:40 → ORTHO 4S 02-28 16:20
PROVIDERS: ADMIT Internal Medicine; ATTEND Internal Medicine
PROC: BW211ZZ Computerized Tomography (CT Scan) of Abdomen and Pelvis using Low Osmolar Contrast (ICD-10-PCS; 2020-02-25)
PROC: 0W9G3ZZ Drainage of Peritoneal Cavity, Percutaneous Approach (ICD-10-PCS; principal; 2020-02-27)
DX: A41.50 Gram-negative sepsis, unspecified (principal); E87.6 Hypokalemia; K72.90 Hepatic failure, unspecified without coma; K70.31 Alcoholic cirrhosis of liver with ascites; K70.11 Alcoholic hepatitis with ascites; E86.0 Dehydration; K29.70 Gastritis, unspecified, without bleeding; K27.9 Peptic ulcer, site unspecified, unspecified as acute or chronic, without hemorrhage or perforation; E87.1 Hypo-osmolality and hyponatremia; E88.09 Other disorders of plasma-protein metabolism, not elsewhere classified; J43.9 Emphysema, unspecified; J90 Pleural effusion, not elsewhere classified; I10 Essential (primary) hypertension; K44.9 Diaphragmatic hernia without obstruction or gangrene; D75.89 Other specified diseases of blood and blood-forming organs; Z90.710 Acquired absence of both cervix and uterus
CPT/HCPCS: 36415; 49083; 71045; 74177; 80053; 80305; 80320; 81001; 82042; 82140; 82945; 82948; 83605; 83615; 83735; 83880; 84100; 84132; 84145; 85007; 85008; 85025; 85610; 85730; 87040; 87045; 87046; 87070; 87077; 87081; 87186; 87324; 87449; 87493; 89051; 92508; 92616; 93005; 94640; 94760; 96365; 97110; 97116; 97162; 97530; 99285; C9113; G0378; J0696; J2405; J3411; J3475; J3480; J3490; J7060; J7626; P9047; Q9967

== ENCOUNTER 2020-03-22 12:53 | Inpatient (IN) | payer MEDICAID ==
[~2020-03-22] VITALS: Ht 157.5 cm; Wt 48.5 kg
[~2020-03-22 12:53] MED LIST changes: +ALB0.5UD IH; +BUDE10.2 INH; +CARV6.253 PO; -DEXL30CA3 PO; +FURO40TA4 PO; -GABA300C PO; +HYDR-4383 PO; +LIPA1CAP28 PO; -NO HOME MEDS; -ONDA4TAB6 PO; -PANT-47 PO; +PANT40TA54 PO; +SPIR100T5 PO; +SUCR1ORA12 PO; -SUCR1TAB34 PO; -TRIA15OI2 TOP; -VALA10002 PO
[2020-03-22 15:10] LABS: BASOPHILS # (AUTO) 0.1 X10'3 (0-0.2); BASOPHILS % (AUTO) 0.6 % (0-1); EOSINOPHILS # (AUTO) 0.2 X10'3 (0-0.9); EOSINOPHILS % (AUTO) 2.7 % (0-6); HEMATOCRIT 34.2 % (35.0-45.0); HEMOGLOBIN 11.4 g/dl (12.0-16.0); LYMPHOCYTES # (AUTO) 1.4 X10'3 (1.1-4.8); LYMPHOCYTES % (AUTO) 16.9 % (21-51); MEAN CORPUSCULAR HEMOGLOBIN 32.5 PG (27.0-31.0); MEAN CORPUSCULAR HGB CONC 33.4 g/dL (33.0-36.5); MEAN CORPUSCULAR VOLUME 97.1 FL (78-98); MEAN PLATELET VOLUME 9.1 FL (7.4-10.4); MONOCYTES % (AUTO) 11.2 % (2-12); NEUTROPHILS # (AUTO) 5.9 X10'3 (1.8-7.7); NEUTROPHILS % (AUTO) 68.6 % (42-75); PLATELET COUNT 293 X10'3 (140-440); RED BLOOD COUNT 3.52 X10'6 (4.20-5.60); WHITE BLOOD COUNT 8.6 X10'3 (4.5-11.0)
[2020-03-22 15:25] LABS: ALANINE AMINOTRANSFERASE 20 U/L (12-78); ALBUMIN 2.3 G/DL (3.4-5.0); ALBUMIN/GLOBULIN RATIO 0.5 (1.1-1.5); ALKALINE PHOSPHATASE 123 IU/L (46-116); ANION GAP 7 (8-16); ASPARTATE AMINO TRANSFERASE 40 U/L (10-37); BLOOD UREA NITROGEN 5 MG/DL (7-18); BUN/CREATININE RATIO 6.1 (6.6-38.0); CALCIUM 8.3 MG/DL (8.5-10.1); CHLORIDE 86 MMOL/L (99-107); CREATININE 0.82 MG/DL (0.40-0.90); GLUCOSE 110 MG/DL (70-104); LIPASE 135 U/L (73-393); SODIUM 133 MMOL/L (135-145); eGFR 72 ML/MIN
[2020-03-22 15:31] LABS: POTASSIUM 1.7 MMOL/L (3.5-5.1)
[2020-03-22 15:32] LABS: TOTAL CARBON DIOXIDE 40.5 MMOL/L (24-32)
[2020-03-22 16:03] LABS: CLARITY,URINE CLEAR (Clear); COLOR,URINE YELLOW (Yellow); GLUCOSE, URINE NEGATIVE (Neg); KETONES,URINE NEGATIVE (Neg); LEUKOCYTE ESTERASE ,URINE NEGATIVE (Neg); NITRITES, URINE NEGATIVE (Neg); OCCULT BLOOD,URINE NEGATIVE (Neg); PH,URINE 7.5 (4.8-8.0); PROTEIN,URINE NEGATIVE (Neg); UROBILINOGEN,URINE 0.2 E.U/dL (0.2-1.0)
[2020-03-22] MEDS ORDERED: potassium Cl 20 mEq SR tablet PO ONE (16:15)
[2020-03-22 16:28] LABS: UA COLLECTION TYPE VOIDED
[2020-03-22] MEDS: magnesium 2GM in 50ml NS 50 ML IV SCH ×2 (16:56→18:19)
[2020-03-22] MEDS: potassium Cl 10 mEq/100mL bag IV SCH ×2 (16:56→18:04)
[2020-03-22 17:23] LABS: BASOPHILS % (AUTO) 0.5 % (0-1); EOSINOPHILS # (AUTO) 0.2 X10'3 (0-0.9); EOSINOPHILS % (AUTO) 2.7 % (0-6); HEMATOCRIT 32.1 % (35.0-45.0); HEMOGLOBIN 11.1 g/dl (12.0-16.0); LYMPHOCYTES # (AUTO) 2.1 X10'3 (1.1-4.8); LYMPHOCYTES % (AUTO) 24.3 % (21-51); MEAN CORPUSCULAR HGB CONC 34.7 g/dL (33.0-36.5); MEAN PLATELET VOLUME 9.1 FL (7.4-10.4); MONOCYTES % (AUTO) 11.3 % (2-12); NEUTROPHILS # (AUTO) 5.3 X10'3 (1.8-7.7); NEUTROPHILS % (AUTO) 61.2 % (42-75); PLATELET COUNT 280 X10'3 (140-440); RED BLOOD COUNT 3.28 X10'6 (4.20-5.60); RED CELL DISTRIBUTION WIDTH 14.5 % (11.5-14.5); WHITE BLOOD COUNT 8.6 X10'3 (4.5-11.0)
[2020-03-22] MEDS ORDERED: magnesium Cl slow-release 64mg tablet PO PRN (19:45)
[2020-03-22] MEDS ORDERED: bisacodyl 10mg suppository rectal RC PRN (19:45)
[2020-03-22] MEDS ORDERED: magnesium hydroxide 30ml (MOM) UD suspension PO PRN (19:45)
[2020-03-22] MEDS ORDERED: mag hydrox/Alum hydrox/simeth 30ml oral suspension PO PRN (19:45)
[2020-03-22] MEDS ORDERED: ondansetron/PF 4mg/2ml inj IV PRN (19:45)
[2020-03-22] MEDS ORDERED: potassium CL 10mEq/100ml bag 100 ML IV PRN ×2 (19:45)
[2020-03-22] MEDS ORDERED: magnesium 2GM in 50ml NS 50 ML IV PRN (19:45)
[2020-03-22] MEDS ORDERED: acetaminophen 325mg tablet PO PRN (19:45)
[2020-03-22] MEDS ORDERED: magnesium 4gm in 100ml NS 100 ML IV PRN (19:45)
[2020-03-22] MEDS ORDERED: potassium Cl 20 mEq SR tablet PO PRN (19:45)
[2020-03-22] MEDS: docusate sod 100mg capsule PO SCH (20:00)
[2020-03-22] MEDS: K and/or MAG REPLACEMENT MC SCH (20:00)
[2020-03-22] MEDS ORDERED: CARV3.12 PO (20:08)
[2020-03-22] MEDS ORDERED: SPIR100T5 PO (20:10)
[2020-03-22 20:20] LABS: ALANINE AMINOTRANSFERASE 19 U/L (12-78); ALBUMIN 2.3 G/DL (3.4-5.0); ALBUMIN/GLOBULIN RATIO 0.5 (1.1-1.5); ALKALINE PHOSPHATASE 118 IU/L (46-116); ANION GAP -2 (8-16); ASPARTATE AMINO TRANSFERASE 41 U/L (10-37); BILIRUBIN,TOTAL 1.1 MG/DL (0.1-1.0); BLOOD UREA NITROGEN 4 MG/DL (7-18); CALCIUM 8.5 MG/DL (8.5-10.1); CHLORIDE 90 MMOL/L (99-107); CREATININE 0.67 MG/DL (0.40-0.90); GLUCOSE 107 MG/DL (70-104); SODIUM 132 MMOL/L (135-145); TOTAL PROTEIN 6.6 G/DL (6.4-8.2); eGFR > 90 ML/MIN
[2020-03-22] MEDS ORDERED: albuterol 2.5 MG/3 ML nebule NEB PRN (20:20)
[2020-03-22 20:25] LABS: TOTAL CARBON DIOXIDE 43.9 MMOL/L (24-32)
[2020-03-22 20:26] LABS: POTASSIUM 2.4 MMOL/L (3.5-5.1)
[2020-03-22] MEDS: potassium Cl 20 mEq SR tablet PO PRN (21:16)
[2020-03-22] MEDS: sucralfate 1 gm tablet PO SCH (21:16)
[2020-03-22 22:00] VITALS: BP 105/71
[2020-03-23] MEDS: potassium Cl 20 mEq SR tablet PO PRN ×4 (01:02→13:01)
[2020-03-23 02:00] VITALS: BP 105/63
[2020-03-23 05:17] LABS: BASOPHILS % (AUTO) 0.5 % (0-1); EOSINOPHILS # (AUTO) 0.3 X10'3 (0-0.9); EOSINOPHILS % (AUTO) 4.6 % (0-6); HEMATOCRIT 29.9 % (35.0-45.0); HEMOGLOBIN 10.4 g/dl (12.0-16.0); LYMPHOCYTES # (AUTO) 1.6 X10'3 (1.1-4.8); LYMPHOCYTES % (AUTO) 27.9 % (21-51); MEAN CORPUSCULAR HEMOGLOBIN 34.1 PG (27.0-31.0); MEAN CORPUSCULAR HGB CONC 34.9 g/dL (33.0-36.5); MEAN CORPUSCULAR VOLUME 97.8 FL (78-98); MEAN PLATELET VOLUME 8.8 FL (7.4-10.4); MONOCYTES # (AUTO) 0.9 X10'3 (0-0.9); MONOCYTES % (AUTO) 15.4 % (2-12); NEUTROPHILS % (AUTO) 51.6 % (42-75); PLATELET COUNT 247 X10'3 (140-440); RED BLOOD COUNT 3.05 X10'6 (4.20-5.60); RED CELL DISTRIBUTION WIDTH 14.3 % (11.5-14.5); WHITE BLOOD COUNT 5.7 X10'3 (4.5-11.0)
[2020-03-23 05:29] LABS: ALANINE AMINOTRANSFERASE 17 U/L (12-78); ALBUMIN 2.1 G/DL (3.4-5.0); ALBUMIN/GLOBULIN RATIO 0.5 (1.1-1.5); ALKALINE PHOSPHATASE 104 IU/L (46-116); ANION GAP 2 (8-16); ASPARTATE AMINO TRANSFERASE 34 U/L (10-37); BLOOD UREA NITROGEN 4 MG/DL (7-18); BUN/CREATININE RATIO 5.9 (6.6-38.0); CALCIUM 8.4 MG/DL (8.5-10.1); CHLORIDE 94 MMOL/L (99-107); CREATININE 0.68 MG/DL (0.40-0.90); GLUCOSE 87 MG/DL (70-104); MAGNESIUM 2.5 MG/DL (1.5-2.4); SODIUM 135 MMOL/L (135-145); TOTAL CARBON DIOXIDE 38.8 MMOL/L (24-32); TOTAL PROTEIN 6.1 G/DL (6.4-8.2); eGFR 90 ML/MIN
[2020-03-23 05:39] LABS: POTASSIUM 2.5 MMOL/L (3.5-5.1)
--- NOTE | 2020-03-23 05:43 | NUR ---
Notified of Critical K+. was on unit at the time that I received call from lab.
--- NOTE | 2020-03-23 06:25 | NUR ---
Patient in room PCU 3028. I have received report from VENKATESH Conde and had the opportunity to ask questions and assume patient care.
--- NOTE | 2020-03-23 06:29 | NUR ---
Problems reprioritized. Patient report given, questions answered & plan of care reviewed with VENKATESH Wall.
[2020-03-23 06:30] VITALS: BP 109/70
[2020-03-23] MEDS: K and/or MAG REPLACEMENT MC SCH ×2 (07:11→20:00)
[2020-03-23] MEDS: budesonide 0.5mg/2ml UD nebule IH SCH ×3 (07:57→21:12)
[2020-03-23] MEDS: docusate sod 100mg capsule PO SCH (08:00)
[2020-03-23] MEDS: pantoprazole 40mg Tablet.DR PO SCH ×2 (08:00→20:42)
[2020-03-23] MEDS: sucralfate 1 gm tablet PO SCH ×4 (08:00→20:42)
[2020-03-23] MEDS: carVEDilol 3.125mg tablet PO SCH ×2 (08:00→20:42)
[2020-03-23] MEDS: LIPASE/PROTEASE/AMYLASE 4,200 unit CAPSULE.DR PO SCH ×3 (08:03→17:54)
[2020-03-23] MEDS ORDERED: loperamide 2mg capsule PO PRN (09:10)
[2020-03-23 11:00] VITALS: BP 106/67
[2020-03-23 15:00] VITALS: BP 96/63
[2020-03-23 18:00] VITALS: BP 104/71
--- NOTE | 2020-03-23 18:45 | NUR ---
Problems reprioritized. Patient report given, questions answered & plan of care reviewed with VENKATESH Velazquez.
--- NOTE | 2020-03-23 18:51 | NUR ---
Patient in room PCU 3028. I have received report from Mae RIDDLE and had the opportunity to ask questions and assume patient care.
[2020-03-23] MEDS ORDERED: HYDROcodone/acetaminophen 5mg/325mg tablet PO PRN (20:20)
[2020-03-23 22:00] VITALS: BP 100/56
[2020-03-24 02:00] VITALS: BP 112/58
[2020-03-24 06:00] VITALS: BP 114/72
[2020-03-24 06:03] LABS: BASOPHILS % (AUTO) 0.6 % (0-1); EOSINOPHILS # (AUTO) 0.3 X10'3 (0-0.9); EOSINOPHILS % (AUTO) 5.1 % (0-6); HEMATOCRIT 30.4 % (35.0-45.0); HEMOGLOBIN 10.5 g/dl (12.0-16.0); LYMPHOCYTES # (AUTO) 1.6 X10'3 (1.1-4.8); LYMPHOCYTES % (AUTO) 27.4 % (21-51); MEAN CORPUSCULAR HEMOGLOBIN 34.1 PG (27.0-31.0); MEAN CORPUSCULAR HGB CONC 34.6 g/dL (33.0-36.5); MEAN CORPUSCULAR VOLUME 98.6 FL (78-98); MEAN PLATELET VOLUME 9.1 FL (7.4-10.4); MONOCYTES # (AUTO) 0.7 X10'3 (0-0.9); MONOCYTES % (AUTO) 11.7 % (2-12); NEUTROPHILS # (AUTO) 3.2 X10'3 (1.8-7.7); NEUTROPHILS % (AUTO) 55.2 % (42-75); PLATELET COUNT 250 X10'3 (140-440); RED BLOOD COUNT 3.08 X10'6 (4.20-5.60); RED CELL DISTRIBUTION WIDTH 14.1 % (11.5-14.5); WHITE BLOOD COUNT 5.9 X10'3 (4.5-11.0)
[2020-03-24 06:20] LABS: ALANINE AMINOTRANSFERASE 17 U/L (12-78); ALBUMIN/GLOBULIN RATIO 0.5 (1.1-1.5); ALKALINE PHOSPHATASE 115 IU/L (46-116); ANION GAP 4 (8-16); ASPARTATE AMINO TRANSFERASE 33 U/L (10-37); BILIRUBIN,TOTAL 0.8 MG/DL (0.1-1.0); BLOOD UREA NITROGEN 4 MG/DL (7-18); BUN/CREATININE RATIO 5.2 (6.6-38.0); CALCIUM 8.6 MG/DL (8.5-10.1); CHLORIDE 99 MMOL/L (99-107); CREATININE 0.77 MG/DL (0.40-0.90); GLUCOSE 91 MG/DL (70-104); MAGNESIUM 2.1 MG/DL (1.5-2.4); POTASSIUM 3.7 MMOL/L (3.5-5.1); SODIUM 133 MMOL/L (135-145); TOTAL CARBON DIOXIDE 29.9 MMOL/L (24-32); eGFR 78 ML/MIN
--- NOTE | 2020-03-24 06:48 | NUR ---
Patient in room PCU 3028B. I have received report from VENKATESH TATE and had the opportunity to ask questions and assume patient care.
--- NOTE | 2020-03-24 07:00 | NUR ---
Problems reprioritized. Patient report given, questions answered & plan of care reviewed with Danielle RIDDLE.
[2020-03-24] MEDS: K and/or MAG REPLACEMENT MC SCH (07:36)
[2020-03-24] MEDS: carVEDilol 3.125mg tablet PO SCH (07:43)
[2020-03-24] MEDS: LIPASE/PROTEASE/AMYLASE 4,200 unit CAPSULE.DR PO SCH (07:43)
[2020-03-24] MEDS: pantoprazole 40mg Tablet.DR PO SCH (07:43)
[2020-03-24] MEDS: sucralfate 1 gm tablet PO SCH (07:43)
[2020-03-24] MEDS: budesonide 0.5mg/2ml UD nebule IH SCH (09:00)
[2020-03-24] MEDS ORDERED: POTA20TA10 PO (09:26)
[2020-03-24] MEDS ORDERED: FURO20TA4 PO (09:26)
[2020-03-24] MEDS ORDERED: LOPE2CAP PO (09:26)
--- NOTE | 2020-03-24 16:45 | NUR ---
PATIENT STABLE AND APPROPRIATE FOR DISCHARGE, TELE REMOVED, IV TAKEN OUT, EDUCATION GIVEN, NEW MEDS CALLED IN TO PREFERRED PHARMACY, ALL BELONGINGS SENT WITH PATIENT, PATIENT TAKEN TO LOBBY BY WHEELCHAIR TO AN AWAITING CAR WHERE FAMILY MEMBER WILL TAKE PATIENT HOME
== END 2020-03-24 11:10 | disposition home or self-care (01) | DRG 280 ==
LOC: ER 12:53 → ED HOLD 19:44 → PCU 3S 21:34
PROVIDERS: ADMIT Family Medicine; ATTEND Internal Medicine
DX: K70.31 Alcoholic cirrhosis of liver with ascites (principal); K72.90 Hepatic failure, unspecified without coma; D50.9 Iron deficiency anemia, unspecified; D63.8 Anemia in other chronic diseases classified elsewhere; E87.6 Hypokalemia; F17.210 Nicotine dependence, cigarettes, uncomplicated; I10 Essential (primary) hypertension; J43.9 Emphysema, unspecified; K29.70 Gastritis, unspecified, without bleeding; T50.2X5A Adverse effect of carbonic-anhydrase inhibitors, benzothiadiazides and other diuretics, initial encounter; K44.9 Diaphragmatic hernia without obstruction or gangrene; G89.29 Other chronic pain; M54.9 Dorsalgia, unspecified; Z90.710 Acquired absence of both cervix and uterus; D53.9 Nutritional anemia, unspecified; E88.09 Other disorders of plasma-protein metabolism, not elsewhere classified
CPT/HCPCS: 36415; 71045; 80053; 81003; 83690; 83735; 83880; 84132; 84484; 85025; 87081; 93005; 94640; 94760; 99285; G0378; J3475; J3480; J7626

== ENCOUNTER 2020-04-27 15:10 | Emergency (ER) | payer MEDICAID ==
[~2020-04-27] VITALS: Ht 157.5 cm; Wt 48.2 kg
[~2020-04-27 15:10] MED LIST changes: +CARV3.12 PO; -CARV6.253 PO; +FURO20TA4 PO; -FURO40TA4 PO; -HYDR-4383 PO; +LOPE2CAP PO; +POTA20TA10 PO; -SPIR100T5 PO
[2020-04-27 15:34] VITALS: BP 130/79
[2020-04-27] MEDS ORDERED: triamcinolone acetonide 40mg/ml inj IM ONE (16:35)
[2020-04-27] MEDS ORDERED: PRED20TA PO (16:36)
[2020-04-27] MEDS ORDERED: HYDR28CR14 TOP (16:43)
== END 2020-04-27 17:00 | disposition home or self-care (01) ==
LOC: ER 15:11
DX: R21 Rash and other nonspecific skin eruption (principal); I10 Essential (primary) hypertension; J43.9 Emphysema, unspecified; G89.29 Other chronic pain; Z90.710 Acquired absence of both cervix and uterus; Z98.51 Tubal ligation status; Z72.89 Other problems related to lifestyle; Z56.0 Unemployment, unspecified; Z88.1 Allergy status to other antibiotic agents; Z88.8 Allergy status to other drugs, medicaments and biological substances; Z79.899 Other long term (current) drug therapy
CPT/HCPCS: 96372; 99283; J3301

== ENCOUNTER 2020-08-01 19:45 | Emergency (ER) | payer MEDICAID ==
[~2020-08-01] VITALS: Ht 157.5 cm; Wt 54.5 kg
[~2020-08-01 19:45] MED LIST changes: +HYDR28CR14 TOP
[2020-08-01 22:02] VITALS: BP 124/68
[2020-08-01] MEDS ORDERED: PRED20TA PO (22:18)
[2020-08-01] MEDS ORDERED: BACI1PAC7 TP (22:18)
== END 2020-08-01 22:35 | disposition home or self-care (01) ==
LOC: ER 19:46
DX: R21 Rash and other nonspecific skin eruption (principal); J44.9 Chronic obstructive pulmonary disease, unspecified; I10 Essential (primary) hypertension; G89.29 Other chronic pain; Z90.710 Acquired absence of both cervix and uterus; Z98.51 Tubal ligation status; Z72.89 Other problems related to lifestyle; Z56.0 Unemployment, unspecified; Z88.1 Allergy status to other antibiotic agents; Z88.2 Allergy status to sulfonamides; Z79.899 Other long term (current) drug therapy
CPT/HCPCS: 99283

== ENCOUNTER 2021-03-22 13:21 | Emergency (ER) | payer MEDICAID ==
[~2021-03-22] VITALS: Ht 157.5 cm; Wt 63.6 kg
[~2021-03-22 13:21] MED LIST changes: +POTA-197 PO; -POTA20TA10 PO
[2021-03-22 13:56] LABS: BASOPHILS # (AUTO) 0.1 X10'3 (0-0.2); BASOPHILS % (AUTO) 0.9 % (0-1); EOSINOPHILS # (AUTO) 0.3 X10'3 (0-0.9); EOSINOPHILS % (AUTO) 4.8 % (0-6); HEMATOCRIT 43.2 % (35.0-45.0); HEMOGLOBIN 14.8 g/dl (12.0-16.0); LYMPHOCYTES # (AUTO) 1.8 X10'3 (1.1-4.8); LYMPHOCYTES % (AUTO) 25.7 % (21-51); MEAN CORPUSCULAR HEMOGLOBIN 33.5 PG (27.0-31.0); MEAN CORPUSCULAR HGB CONC 34.3 g/dL (33.0-36.5); MEAN CORPUSCULAR VOLUME 97.5 FL (78-98); MEAN PLATELET VOLUME 8.7 FL (7.4-10.4); MONOCYTES # (AUTO) 1.1 X10'3 (0-0.9); MONOCYTES % (AUTO) 15.2 % (2-12); NEUTROPHILS # (AUTO) 3.8 X10'3 (1.8-7.7); NEUTROPHILS % (AUTO) 53.4 % (42-75); PLATELET COUNT 185 X10'3 (140-440); RED BLOOD COUNT 4.43 X10'6 (4.20-5.60); RED CELL DISTRIBUTION WIDTH 14.2 % (11.5-14.5); WHITE BLOOD COUNT 7.1 X10'3 (4.5-11.0)
[2021-03-22 14:07] LABS: ALANINE AMINOTRANSFERASE 69 U/L (12-78); ALBUMIN 3.5 G/DL (3.4-5.0); ALBUMIN/GLOBULIN RATIO 1.1 (1.1-1.5); ALKALINE PHOSPHATASE 100 IU/L (46-116); ANION GAP 9 (8-16); ASPARTATE AMINO TRANSFERASE 86 U/L (10-37); BILIRUBIN,TOTAL 0.4 MG/DL (0.1-1.0); BLOOD UREA NITROGEN 5 MG/DL (7-18); BUN/CREATININE RATIO 5.6 (6.6-38.0); CALCIUM 8.6 MG/DL (8.5-10.1); CHLORIDE 100 MMOL/L (99-107); GLUCOSE 99 MG/DL (70-104); POTASSIUM 3.5 MMOL/L (3.5-5.1); SODIUM 135 MMOL/L (135-145); TOTAL CARBON DIOXIDE 25.9 MMOL/L (24-32); TOTAL PROTEIN 6.8 G/DL (6.4-8.2); eGFR 65 ML/MIN
[2021-03-22 15:47] LABS: LIPASE 76 U/L (73-393)
[2021-03-22 15:58] LABS: CLARITY,URINE CLEAR (Clear); COLOR,URINE YELLOW (Yellow); GLUCOSE, URINE NEGATIVE (Neg); KETONES,URINE NEGATIVE (Neg); LEUKOCYTE ESTERASE ,URINE NEGATIVE (Neg); NITRITES, URINE NEGATIVE (Neg); OCCULT BLOOD,URINE NEGATIVE (Neg); PROTEIN,URINE NEGATIVE (Neg); UROBILINOGEN,URINE 0.2 E.U/dL (0.2-1.0)
[2021-03-22 15:59] LABS: UA COLLECTION TYPE CLN CATCH MIDSTREAM
[2021-03-22] MEDS ORDERED: LIDOcaine Viscous 15ml cup TP ONE (16:45)
[2021-03-22] MEDS ORDERED: mag hydrox/Alum hydrox/simeth 30ml oral suspension PO ONE (16:45)
[2021-03-22] MEDS ORDERED: normal saline 1000ML IV soln IVB ONE (16:45)
[2021-03-22] MEDS ORDERED: ketorolac tromethamine 15mg/ml inj. IV ONE (16:45)
[2021-03-22] MEDS ORDERED: ketorolac trometh. 30mg/ml inj. IV ONE (16:50)
--- NOTE | 2021-03-22 17:45 | NUR ---
PT REFUSING IV FLUIDS AT THIS TIME, TORADOL GIVEN, WILL MONITOR FOR PAIN RELIEF AND RE ASSESS.
[2021-03-22 17:55] VITALS: BP 163/95
== END 2021-03-22 17:57 | disposition home or self-care (01) ==
LOC: ER 13:22
DX: A08.4 Viral intestinal infection, unspecified (principal); R10.11 Right upper quadrant pain; R10.32 Left lower quadrant pain; R11.0 Nausea; R10.33 Periumbilical pain; I10 Essential (primary) hypertension; J43.9 Emphysema, unspecified; G89.29 Other chronic pain; Z90.710 Acquired absence of both cervix and uterus; Z98.51 Tubal ligation status; Z72.89 Other problems related to lifestyle; Z56.0 Unemployment, unspecified; Z88.1 Allergy status to other antibiotic agents; Z88.8 Allergy status to other drugs, medicaments and biological substances; Z79.899 Other long term (current) drug therapy
CPT/HCPCS: 36415; 80053; 81003; 83690; 85025; 96374; 99285; J1885

== ENCOUNTER 2021-05-10 09:41 | Inpatient (IN) | payer MEDICAID ==
[~2021-05-10] VITALS: Ht 157.5 cm; Wt 65.0 kg
--- NOTE | 2021-05-10 10:56 | NUR ---
unable to obtain temp via axilla, oral and temporal reading very low,temp rechecked rectal, 93.4,Julieta VEGA made aware.patient negative for covid.
[2021-05-10] MEDS ORDERED: normal saline 1000ML IV soln IV ONE (11:00)
[2021-05-10 11:53] LABS: BASOPHILS % (AUTO) 0.3 % (0-1); EOSINOPHILS % (AUTO) 0.2 % (0-6); HEMOGLOBIN 15.1 g/dl (12.0-16.0); LYMPHOCYTES # (AUTO) 0.7 X10'3 (1.1-4.8); LYMPHOCYTES % (AUTO) 9.4 % (21-51); MEAN CORPUSCULAR HEMOGLOBIN 33.9 PG (27.0-31.0); MEAN CORPUSCULAR HGB CONC 33.7 g/dL (33.0-36.5); MEAN CORPUSCULAR VOLUME 100.6 FL (78-98); MEAN PLATELET VOLUME 9.5 FL (7.4-10.4); MONOCYTES # (AUTO) 0.3 X10'3 (0-0.9); MONOCYTES % (AUTO) 3.7 % (2-12); NEUTROPHILS # (AUTO) 6.7 X10'3 (1.8-7.7); NEUTROPHILS % (AUTO) 86.4 % (42-75); PLATELET COUNT 115 X10'3 (140-440); RED BLOOD COUNT 4.47 X10'6 (4.20-5.60); RED CELL DISTRIBUTION WIDTH 13.9 % (11.5-14.5); WHITE BLOOD COUNT 7.8 X10'3 (4.5-11.0)
[2021-05-10 12:05] LABS: ALANINE AMINOTRANSFERASE 278 U/L (12-78); ALBUMIN 3.4 G/DL (3.4-5.0); ALKALINE PHOSPHATASE 182 IU/L (46-116); ANION GAP 19 (8-16); ASPARTATE AMINO TRANSFERASE 732 U/L (10-37); BILIRUBIN,TOTAL 0.8 MG/DL (0.1-1.0); BLOOD UREA NITROGEN 15 MG/DL (7-18); BUN/CREATININE RATIO 18.5 (6.6-38.0); CALCIUM 8.2 MG/DL (8.5-10.1); CHLORIDE 91 MMOL/L (99-107); CREATININE 0.81 MG/DL (0.40-0.90); GLUCOSE 159 MG/DL (70-104); MAGNESIUM 1.8 MG/DL (1.5-2.4); POTASSIUM 4.1 MMOL/L (3.5-5.1); SODIUM 126 MMOL/L (135-145); TOTAL CARBON DIOXIDE 15.8 MMOL/L (24-32); TOTAL PROTEIN 6.9 G/DL (6.4-8.2); eGFR 73 ML/MIN
[2021-05-10] MEDS ORDERED: normal saline 1000ML IV soln IVB ONE (12:30)
[2021-05-10] MEDS ORDERED: iohexol 300mg/ml 100ml inj. ONE (12:43)
[2021-05-10 13:18] LABS: APTT 30 SECONDS (22-32)
[2021-05-10 13:26] LABS: ETHANOL 0.064 GM/DL (0.0-0.010)
[2021-05-10 14:04] LABS: CLARITY,URINE CLEAR (Clear); GLUCOSE, URINE NEGATIVE (Neg); KETONES,URINE 40 mg/dl (Neg); LEUKOCYTE ESTERASE ,URINE NEGATIVE (Neg); NITRITES, URINE NEGATIVE (Neg); OCCULT BLOOD,URINE NEGATIVE (Neg); PH,URINE 5.5 (4.8-8.0); PROTEIN,URINE NEGATIVE (Neg); UROBILINOGEN,URINE 0.2 E.U/dL (0.2-1.0)
[2021-05-10 14:08] LABS: COLOR,URINE STRAW (Yellow); UA COLLECTION TYPE CLN CATCH MIDSTREAM
[2021-05-10 14:09] LABS: URINE AMPHETAMINE SCREEN NEGATIVE (Neg); URINE BARBITUATE SCREEN NEGATIVE (Neg); URINE BENZODIAZEPINES SCREEN NEGATIVE (Neg); URINE CANNABINOID SCREEN NEGATIVE (Neg); URINE COCAINE SCREEN NEGATIVE (Neg); URINE METHADONE SCREEN NEGATIVE (Neg); URINE OPIATE SCREEN NEGATIVE (Neg); URINE PHENCYCLIDINE SCREEN NEGATIVE (Neg)
[2021-05-10] MEDS ORDERED: ciprofloxacin lact 400MG/200ML 200 ML IV STA (15:16)
[2021-05-10] MEDS ORDERED: metroNIDAZOLE-Flagyl 500mg/NS 100 ML IV STA (15:16)
[2021-05-10] MEDS ORDERED: morphine 2 MG/ML inj. syringe IV PRN ×2 (15:30)
[2021-05-10] MEDS ORDERED: ondansetron/PF 4mg/2ml inj IV PRN (15:30)
[2021-05-10] MEDS ORDERED: mag hydrox/Alum hydrox/simeth 30ml oral suspension PO PRN (15:30)
[2021-05-10] MEDS ORDERED: magnesium hydroxide 30ml (MOM) UD suspension PO PRN (15:30)
[2021-05-10] MEDS ORDERED: dextrose 50%-water 50ml dispensing syringe IV PRN (15:30)
[2021-05-10] MEDS ORDERED: magnesium Cl slow-release 64mg tablet PO PRN (15:30)
[2021-05-10] MEDS ORDERED: potassium CL 10mEq/100ml bag 100 ML IV PRN (15:30)
[2021-05-10] MEDS ORDERED: acetaminophen 325mg tablet PO PRN (15:30)
[2021-05-10] MEDS ORDERED: magnesium 2GM in 50ml NS 50 ML IV PRN (15:30)
[2021-05-10] MEDS ORDERED: potassium Cl 20 mEq SR tablet PO PRN ×2 (15:30)
[2021-05-10] MEDS ORDERED: haloperidol 5mg tablet PO PRN (15:30)
[2021-05-10] MEDS ORDERED: magnesium 4gm in 100ml NS 100 ML IV PRN (15:30)
[2021-05-10] MEDS ORDERED: haloperidol lactate 5mg/ml inj IM PRN (15:30)
[2021-05-10] MEDS: normal saline 1000ml 1,000 ML IV SCH ×3 (16:00→21:38)
[2021-05-10] MEDS: metroNIDAZOLE-Flagyl 500mg/NS 100 ML IV SCH ×2 (16:00→23:42)
[2021-05-10 16:54] LABS: POTASSIUM 4.9 MMOL/L (3.5-5.1)
[2021-05-10] MEDS: LORazepam 2 mg/ml vial IV PRN (18:41)
[2021-05-10] MEDS ORDERED: ciprofloxacin lact 400MG/200ML 200 ML IV SCH (20:00)
[2021-05-10] MEDS: docusate sod 100mg capsule PO SCH (20:00)
[2021-05-10] MEDS: K and/or MAG REPLACEMENT MC SCH (20:41)
--- NOTE | 2021-05-10 20:50 | NUR ---
Report given to VENKATESH Toney in PCU.
[2021-05-10 21:00] VITALS: BP 156/88
[2021-05-10] MEDS: thiamine 100mg/ml 2ml inj. IV SCH (21:37)
[2021-05-10] MEDS ORDERED: LIPA1CAP28 PO (22:38)
[2021-05-10] MEDS ORDERED: CARV6.253 PO (22:38)
[2021-05-10] MEDS ORDERED: POTA-82 PO (22:38)
[2021-05-11 02:00] VITALS: BP 148/74
[2021-05-11] MEDS ORDERED: ciprofloxacin lact 400MG/200ML 200 ML IV SCH (05:00)
[2021-05-11 06:00] VITALS: BP 159/84
[2021-05-11 07:42] LABS: BASOPHILS % (AUTO) 0.4 % (0-1); EOSINOPHILS # (AUTO) 0.1 X10'3 (0-0.9); EOSINOPHILS % (AUTO) 1.7 % (0-6); HEMATOCRIT 41.1 % (35.0-45.0); HEMOGLOBIN 13.8 g/dl (12.0-16.0); LYMPHOCYTES # (AUTO) 1.1 X10'3 (1.1-4.8); LYMPHOCYTES % (AUTO) 20.5 % (21-51); MEAN CORPUSCULAR HEMOGLOBIN 33.6 PG (27.0-31.0); MEAN CORPUSCULAR HGB CONC 33.5 g/dL (33.0-36.5); MEAN CORPUSCULAR VOLUME 100.3 FL (78-98); MEAN PLATELET VOLUME 9.6 FL (7.4-10.4); MONOCYTES # (AUTO) 0.6 X10'3 (0-0.9); MONOCYTES % (AUTO) 11.5 % (2-12); NEUTROPHILS # (AUTO) 3.6 X10'3 (1.8-7.7); NEUTROPHILS % (AUTO) 65.9 % (42-75); PLATELET COUNT 109 X10'3 (140-440); RED BLOOD COUNT 4.09 X10'6 (4.20-5.60); WHITE BLOOD COUNT 5.4 X10'3 (4.5-11.0)
[2021-05-11 07:53] LABS: ALANINE AMINOTRANSFERASE 169 U/L (12-78); ALBUMIN 2.9 G/DL (3.4-5.0); ALBUMIN/GLOBULIN RATIO 0.9 (1.1-1.5); ALKALINE PHOSPHATASE 131 IU/L (46-116); ANION GAP 12 (8-16); ASPARTATE AMINO TRANSFERASE 197 U/L (10-37); BILIRUBIN,TOTAL 0.8 MG/DL (0.1-1.0); BLOOD UREA NITROGEN 8 MG/DL (7-18); BUN/CREATININE RATIO 10.7 (6.6-38.0); CALCIUM 7.5 MG/DL (8.5-10.1); CHLORIDE 101 MMOL/L (99-107); CREATININE 0.75 MG/DL (0.40-0.90); GLUCOSE 69 MG/DL (70-104); POTASSIUM 3.9 MMOL/L (3.5-5.1); SODIUM 134 MMOL/L (135-145); TOTAL CARBON DIOXIDE 20.8 MMOL/L (24-32); TOTAL PROTEIN 6.2 G/DL (6.4-8.2); eGFR 80 ML/MIN
[2021-05-11] MEDS ORDERED: folic acid 1mg/0.2ml inj IV SCH (08:00)
[2021-05-11] MEDS: K and/or MAG REPLACEMENT MC SCH ×2 (08:00→20:00)
[2021-05-11] MEDS: thiamine 100mg/ml 2ml inj. IV SCH (08:17)
[2021-05-11] MEDS: metroNIDAZOLE-Flagyl 500mg/NS 100 ML IV SCH ×2 (08:17→15:10)
[2021-05-11] MEDS: enoxaparin 40mg/0.4ml syringe SUBCUT SCH (08:17)
[2021-05-11] MEDS: docusate sod 100mg capsule PO SCH ×2 (08:17→20:44)
[2021-05-11] MEDS: LORazepam 2 mg/ml vial IV PRN ×2 (08:33→16:57)
[2021-05-11] MEDS: ciprofloxacin 250mg tablet PO SCH ×2 (10:00→22:00)
[2021-05-11 11:00] VITALS: BP 159/77
[2021-05-11 15:00] VITALS: BP 158/92
[2021-05-11] MEDS: folic acid 1mg tablet PO SCH (15:10)
[2021-05-11] MEDS ORDERED: albuterol 2.5 MG/3 ML nebule NEB PRN (17:35)
[2021-05-11 18:00] VITALS: BP 137/75
--- NOTE | 2021-05-11 18:56 | NUR ---
Patient in room PCU 3023. I have received report from VENKATESH Aguilar, and had the opportunity to ask questions and assume patient care. Pt. resting quietly in bed, no distress noted.
[2021-05-11] MEDS: albuterol 2.5 MG/3 ML nebule NEB SCH (20:18)
[2021-05-11] MEDS: budesonide 0.5mg/2ml UD nebule IH SCH (20:19)
[2021-05-11] MEDS: lactobacillus rhamnosus 10,000 MMU CELLS/CAPSULE PO SCH (20:45)
[2021-05-11] MEDS: LIPASE/PROTEASE/AMYLASE 4,200 unit CAPSULE.DR PO SCH (20:45)
[2021-05-11] MEDS: carvedilol 6.25mg tablet PO SCH (20:45)
[2021-05-11] MEDS: normal saline 1000ml 1,000 ML IV SCH (21:51)
[2021-05-11 22:00] VITALS: BP 139/79
[2021-05-12] MEDS: metroNIDAZOLE-Flagyl 500mg/NS 100 ML IV SCH ×3 (00:16→16:01)
[2021-05-12] MEDS: albuterol 2.5 MG/3 ML nebule NEB SCH ×4 (02:48→21:00)
[2021-05-12 06:00] VITALS: BP 150/80
[2021-05-12 06:18] LABS: BASOPHILS % (AUTO) 0.3 % (0-1); EOSINOPHILS # (AUTO) 0.2 X10'3 (0-0.9); EOSINOPHILS % (AUTO) 4.3 % (0-6); HEMATOCRIT 40.5 % (35.0-45.0); HEMOGLOBIN 13.7 g/dl (12.0-16.0); LYMPHOCYTES # (AUTO) 0.9 X10'3 (1.1-4.8); LYMPHOCYTES % (AUTO) 24.3 % (21-51); MEAN CORPUSCULAR HEMOGLOBIN 33.6 PG (27.0-31.0); MEAN CORPUSCULAR HGB CONC 33.7 g/dL (33.0-36.5); MEAN CORPUSCULAR VOLUME 99.6 FL (78-98); MONOCYTES # (AUTO) 0.4 X10'3 (0-0.9); MONOCYTES % (AUTO) 12.1 % (2-12); NEUTROPHILS # (AUTO) 2.1 X10'3 (1.8-7.7); PLATELET COUNT 105 X10'3 (140-440); RED BLOOD COUNT 4.06 X10'6 (4.20-5.60); RED CELL DISTRIBUTION WIDTH 13.9 % (11.5-14.5); WHITE BLOOD COUNT 3.6 X10'3 (4.5-11.0)
[2021-05-12 06:27] LABS: ALANINE AMINOTRANSFERASE 132 U/L (12-78); ALBUMIN 2.9 G/DL (3.4-5.0); ALBUMIN/GLOBULIN RATIO 0.9 (1.1-1.5); ALKALINE PHOSPHATASE 125 IU/L (46-116); ANION GAP 9 (8-16); ASPARTATE AMINO TRANSFERASE 157 U/L (10-37); BILIRUBIN,TOTAL 0.6 MG/DL (0.1-1.0); BLOOD UREA NITROGEN 5 MG/DL (7-18); BUN/CREATININE RATIO 7.5 (6.6-38.0); CHLORIDE 105 MMOL/L (99-107); CREATININE 0.67 MG/DL (0.40-0.90); GLUCOSE 92 MG/DL (70-104); POTASSIUM 3.4 MMOL/L (3.5-5.1); SODIUM 137 MMOL/L (135-145); TOTAL CARBON DIOXIDE 23.5 MMOL/L (24-32); TOTAL PROTEIN 6.2 G/DL (6.4-8.2); eGFR > 90 ML/MIN
[2021-05-12] MEDS: budesonide 0.5mg/2ml UD nebule IH SCH ×2 (06:52→21:00)
--- NOTE | 2021-05-12 06:58 | NUR ---
Problems reprioritized. Patient report given, questions answered & plan of care reviewed with VENKATESH Vega.
[2021-05-12] MEDS: LIPASE/PROTEASE/AMYLASE 4,200 unit CAPSULE.DR PO SCH ×3 (08:00→18:00)
[2021-05-12] MEDS: K and/or MAG REPLACEMENT MC SCH ×2 (08:00→20:05)
[2021-05-12] MEDS ORDERED: non-formulary drug (Budesonide/Formoterol Fumarate (Symbicort 160-4.5 Mcg Inhaler) 2 PUFFS INH SCH (08:00)
[2021-05-12] MEDS: thiamine 100mg tablet PO SCH (08:00)
[2021-05-12] MEDS: folic acid 1mg tablet PO SCH (09:33)
[2021-05-12] MEDS: carvedilol 6.25mg tablet PO SCH ×2 (09:33→19:15)
[2021-05-12] MEDS: potassium Cl 20 mEq SR tablet PO SCH (09:33)
[2021-05-12] MEDS: levoFLOXACIN 500mg tablet PO SCH (09:33)
[2021-05-12] MEDS: lactobacillus rhamnosus 10,000 MMU CELLS/CAPSULE PO SCH ×2 (09:34→19:14)
[2021-05-12] MEDS: LORazepam 2 mg/ml vial IV PRN ×2 (09:40→16:01)
[2021-05-12] MEDS: enoxaparin 40mg/0.4ml syringe SUBCUT SCH (09:41)
[2021-05-12] MEDS: docusate sod 100mg capsule PO SCH ×2 (09:41→19:14)
[2021-05-12] MEDS: normal saline 1000ml 1,000 ML IV SCH (09:47)
[2021-05-12 11:00] VITALS: BP 153/88
--- NOTE | 2021-05-12 13:00 | NUR ---
Per Dr. Laguerre do not give powder to lower k. Marked off in EMR. Silvia U
[2021-05-12] MEDS ORDERED: LORazepam 1 MG tablet PO PRN (15:30)
[2021-05-12 18:00] VITALS: BP 195/104
--- NOTE | 2021-05-12 18:09 | NUR ---
elevated BP PAGER ID: [phone] MESSAGE: Dr. Carrillo pt in room 3023C Malathi Jerry BP 195/104 at 1800. Thanks Silvia [facility]
[2021-05-12] MEDS ORDERED: hydrALAZINE 20mg/ml inj. IV PRN (18:10)
--- NOTE | 2021-05-12 18:30 | NUR ---
Problems reprioritized. Patient report given to RN Kylah RIDDLE, questions answered & plan of care reviewed with Kylah RIDDLE. Per RN she will give IV hydralazine. Kylah RIDDLE aware of elevated BP
[2021-05-12 19:15] VITALS: BP 171/100
--- NOTE | 2021-05-12 19:18 | NUR ---
Hydrallazine 5mg, given IV, for elevated Bp-171/100. Pt tolerated, well, will continue to monitor. Addendum: 05/12/21 at 2243 by Kylah Del Valle RN Hydrallazine 10mg /0.5ml, given IV, not 5mg, as documented in error.
[2021-05-12 20:15] VITALS: BP 136/76
--- NOTE | 2021-05-12 20:15 | NUR ---
Bp rechecked, down 136/76. Pt is stable.
[2021-05-12 22:00] VITALS: BP 125/81
[2021-05-13] MEDS: metroNIDAZOLE-Flagyl 500mg/NS 100 ML IV SCH ×3 (00:09→17:08)
[2021-05-13] MEDS: normal saline 1000ml 1,000 ML IV SCH ×4 (00:10→23:30)
[2021-05-13 02:00] VITALS: BP 131/78
[2021-05-13] MEDS: albuterol 2.5 MG/3 ML nebule NEB SCH ×4 (04:14→21:00)
[2021-05-13 06:00] VITALS: BP 168/99
[2021-05-13 06:04] LABS: BASOPHILS % (AUTO) 0.4 % (0-1); EOSINOPHILS # (AUTO) 0.2 X10'3 (0-0.9); EOSINOPHILS % (AUTO) 4.4 % (0-6); HEMATOCRIT 41.9 % (35.0-45.0); HEMOGLOBIN 14.4 g/dl (12.0-16.0); LYMPHOCYTES % (AUTO) 24.9 % (21-51); MEAN CORPUSCULAR HEMOGLOBIN 33.7 PG (27.0-31.0); MEAN CORPUSCULAR HGB CONC 34.4 g/dL (33.0-36.5); MEAN CORPUSCULAR VOLUME 98.1 FL (78-98); MEAN PLATELET VOLUME 8.7 FL (7.4-10.4); MONOCYTES # (AUTO) 0.6 X10'3 (0-0.9); MONOCYTES % (AUTO) 14.6 % (2-12); NEUTROPHILS # (AUTO) 2.3 X10'3 (1.8-7.7); NEUTROPHILS % (AUTO) 55.7 % (42-75); PLATELET COUNT 113 X10'3 (140-440); RED BLOOD COUNT 4.27 X10'6 (4.20-5.60); RED CELL DISTRIBUTION WIDTH 13.6 % (11.5-14.5); WHITE BLOOD COUNT 4.2 X10'3 (4.5-11.0)
[2021-05-13 06:08] LABS: ALANINE AMINOTRANSFERASE 115 U/L (12-78); ALBUMIN/GLOBULIN RATIO 0.9 (1.1-1.5); ALKALINE PHOSPHATASE 123 IU/L (46-116); ANION GAP 8 (8-16); ASPARTATE AMINO TRANSFERASE 113 U/L (10-37); BILIRUBIN,TOTAL 0.7 MG/DL (0.1-1.0); BLOOD UREA NITROGEN 3 MG/DL (7-18); BUN/CREATININE RATIO 4.8 (6.6-38.0); CHLORIDE 104 MMOL/L (99-107); CREATININE 0.62 MG/DL (0.40-0.90); GLUCOSE 94 MG/DL (70-104); POTASSIUM 3.3 MMOL/L (3.5-5.1); SODIUM 136 MMOL/L (135-145); TOTAL CARBON DIOXIDE 24.4 MMOL/L (24-32); TOTAL PROTEIN 6.4 G/DL (6.4-8.2); eGFR > 90 ML/MIN
--- NOTE | 2021-05-13 06:49 | NUR ---
Problems reprioritized. Patient report given, questions answered & plan of care reviewed with VENKATESH Vega.
[2021-05-13] MEDS: budesonide 0.5mg/2ml UD nebule IH SCH ×2 (09:00→21:00)
[2021-05-13] MEDS: potassium Cl 20 mEq SR tablet PO SCH (09:01)
[2021-05-13] MEDS: folic acid 1mg tablet PO SCH (09:02)
[2021-05-13] MEDS: carvedilol 6.25mg tablet PO SCH ×2 (09:02→20:36)
[2021-05-13] MEDS: thiamine 100mg tablet PO SCH (09:02)
[2021-05-13] MEDS: enoxaparin 40mg/0.4ml syringe SUBCUT SCH (09:05)
[2021-05-13] MEDS: levoFLOXACIN 500mg tablet PO SCH (09:05)
[2021-05-13] MEDS: lactobacillus rhamnosus 10,000 MMU CELLS/CAPSULE PO SCH ×2 (09:05→20:36)
[2021-05-13] MEDS: LIPASE/PROTEASE/AMYLASE 4,200 unit CAPSULE.DR PO SCH ×3 (09:06→18:36)
[2021-05-13] MEDS: K and/or MAG REPLACEMENT MC SCH ×2 (09:06→20:00)
[2021-05-13] MEDS: docusate sod 100mg capsule PO SCH ×2 (09:06→20:00)
[2021-05-13 10:00] VITALS: BP 131/68
[2021-05-13] MEDS: LORazepam 2 mg/ml vial IV PRN ×2 (10:26→17:08)
[2021-05-13 10:29] VITALS: BP 144/82
[2021-05-13 15:00] VITALS: BP 153/98
--- NOTE | 2021-05-13 18:07 | NUR ---
Problems reprioritized. Patient report given Kylah RIDDLE, questions answered & plan of care reviewed with Kylah RIDDLE. [facility]
--- NOTE | 2021-05-13 18:15 | NUR ---
Patient in room PCU 3023. I have received report from VENKATESH Vega and had the opportunity to ask questions and assume patient care. Pt resting quietly in bed, no c/o voiced at this time. Need 1 more bag of Potassium 10meq, for K+ replacement.
--- NOTE | 2021-05-13 20:06 | NUR ---
PAGER ID: [phone] MESSAGE: RE: Rosalino Servin -Room 3023 C, her k+ level this morning was 3.3, she had 3 doses of K+ 20meq po , 4th dose yet to be given per protocol, but, potassium replacement order was discounted, not sure why. Please advise, next action plan.
--- NOTE | 2021-05-13 20:12 | NUR ---
Dr. English, called back, Re: text message sent, ok, to continue K+ PO, replacement protocol
[2021-05-13] MEDS ORDERED: magnesium Cl slow-release 64mg tablet PO PRN (20:15)
[2021-05-13] MEDS ORDERED: potassium Cl 20 mEq SR tablet PO PRN ×2 (20:15)
[2021-05-13] MEDS ORDERED: magnesium 2GM in 50ml NS 50 ML IV PRN (20:15)
[2021-05-13 21:33] LABS: MAGNESIUM 1.8 MG/DL (1.5-2.4); POTASSIUM 3.9 MMOL/L (3.5-5.1)
[2021-05-14] MEDS: metroNIDAZOLE-Flagyl 500mg/NS 100 ML IV SCH ×2 (00:37→07:52)
[2021-05-14] MEDS: albuterol 2.5 MG/3 ML nebule NEB SCH ×2 (03:00→09:00)
[2021-05-14 06:14] LABS: BASOPHILS % (AUTO) 0.5 % (0-1); EOSINOPHILS # (AUTO) 0.2 X10'3 (0-0.9); EOSINOPHILS % (AUTO) 4.7 % (0-6); HEMATOCRIT 41.2 % (35.0-45.0); LYMPHOCYTES % (AUTO) 26.4 % (21-51); MEAN CORPUSCULAR HEMOGLOBIN 33.6 PG (27.0-31.0); MEAN CORPUSCULAR HGB CONC 33.9 g/dL (33.0-36.5); MEAN CORPUSCULAR VOLUME 99.1 FL (78-98); MEAN PLATELET VOLUME 9.3 FL (7.4-10.4); MONOCYTES # (AUTO) 0.7 X10'3 (0-0.9); MONOCYTES % (AUTO) 18.5 % (2-12); NEUTROPHILS # (AUTO) 1.8 X10'3 (1.8-7.7); NEUTROPHILS % (AUTO) 49.9 % (42-75); PLATELET COUNT 122 X10'3 (140-440); RED BLOOD COUNT 4.16 X10'6 (4.20-5.60); RED CELL DISTRIBUTION WIDTH 13.6 % (11.5-14.5); WHITE BLOOD COUNT 3.7 X10'3 (4.5-11.0)
[2021-05-14 06:23] LABS: ALANINE AMINOTRANSFERASE 136 U/L (12-78); ALBUMIN 2.9 G/DL (3.4-5.0); ALBUMIN/GLOBULIN RATIO 0.9 (1.1-1.5); ALKALINE PHOSPHATASE 123 IU/L (46-116); ANION GAP 7 (8-16); ASPARTATE AMINO TRANSFERASE 212 U/L (10-37); BILIRUBIN,TOTAL 0.6 MG/DL (0.1-1.0); BLOOD UREA NITROGEN 3 MG/DL (7-18); BUN/CREATININE RATIO 4.6 (6.6-38.0); CALCIUM 8.3 MG/DL (8.5-10.1); CHLORIDE 106 MMOL/L (99-107); CREATININE 0.65 MG/DL (0.40-0.90); GLUCOSE 96 MG/DL (70-104); MAGNESIUM 1.9 MG/DL (1.5-2.4); SODIUM 136 MMOL/L (135-145); TOTAL PROTEIN 6.1 G/DL (6.4-8.2); eGFR > 90 ML/MIN
--- NOTE | 2021-05-14 06:44 | NUR ---
Problems reprioritized. Patient report given, questions answered & plan of care reviewed with VENKATESH Ahn.Pt is stable, no c/o voiced at this time.
[2021-05-14 07:10] VITALS: BP 156/104
[2021-05-14 07:43] LABS: TOTAL CELLS COUNTED 100
[2021-05-14 07:44] LABS: PLATELET ESTIMATE DECREASED
[2021-05-14] MEDS: docusate sod 100mg capsule PO SCH (07:53)
[2021-05-14] MEDS: carvedilol 6.25mg tablet PO SCH (07:53)
[2021-05-14] MEDS: folic acid 1mg tablet PO SCH (07:53)
[2021-05-14] MEDS: lactobacillus rhamnosus 10,000 MMU CELLS/CAPSULE PO SCH (07:53)
[2021-05-14] MEDS: potassium Cl 20 mEq SR tablet PO SCH (07:53)
[2021-05-14] MEDS: levoFLOXACIN 500mg tablet PO SCH (07:53)
[2021-05-14] MEDS: LIPASE/PROTEASE/AMYLASE 4,200 unit CAPSULE.DR PO SCH (07:53)
[2021-05-14] MEDS: enoxaparin 40mg/0.4ml syringe SUBCUT SCH (07:54)
[2021-05-14] MEDS: thiamine 100mg tablet PO SCH (07:54)
[2021-05-14] MEDS: K and/or MAG REPLACEMENT MC SCH (07:58)
[2021-05-14] MEDS: budesonide 0.5mg/2ml UD nebule IH SCH (09:00)
[2021-05-14] MEDS: normal saline 1000ml 1,000 ML IV SCH (09:30)
[2021-05-14] MEDS ORDERED: CIPR-202 PO (10:09)
[2021-05-14] MEDS ORDERED: METR-159 PO (10:09)
[2021-05-14] MEDS ORDERED: THIA100T70 PO (10:10)
[2021-05-14] MEDS ORDERED: CHLO25CA10 PO (10:10)
[2021-05-14] MEDS ORDERED: FOLI0.4T6 PO (10:10)
[2021-05-14] MEDS: LORazepam 2 mg/ml vial IV PRN (10:58)
[2021-05-14] MEDS ORDERED: LORazepam 1 MG tablet PO PRN (15:30)
[2021-05-14] MEDS ORDERED: LORazepam 2 mg/ml vial IV PRN (15:30)
[2021-05-15] MEDS ORDERED: folic acid 1mg tablet PO SCH (08:00)
[2021-05-15] MEDS ORDERED: thiamine 100mg tablet PO SCH (08:00)
== END 2021-05-14 11:22 | disposition home or self-care (01) | DRG 249 ==
LOC: ER 09:41 → ED HOLD 15:29 → EDBEDREQ 20:17 → PCU 3S 21:05
PROVIDERS: ADMIT Family Medicine; ATTEND Family Medicine
PROC: BW211ZZ Computerized Tomography (CT Scan) of Abdomen and Pelvis using Low Osmolar Contrast (ICD-10-PCS; principal; 2021-05-10)
DX: K52.9 Noninfective gastroenteritis and colitis, unspecified (principal); E87.2 Acidosis; E87.1 Hypo-osmolality and hyponatremia; K70.10 Alcoholic hepatitis without ascites; K86.0 Alcohol-induced chronic pancreatitis; M87.851 Other osteonecrosis, right femur; Z20.822 Contact with and (suspected) exposure to COVID-19; F10.220 Alcohol dependence with intoxication, uncomplicated; F10.239 Alcohol dependence with withdrawal, unspecified; F17.210 Nicotine dependence, cigarettes, uncomplicated; I10 Essential (primary) hypertension; M71.58 Other bursitis, not elsewhere classified, other site; M87.852 Other osteonecrosis, left femur; J43.9 Emphysema, unspecified; K74.60 Unspecified cirrhosis of liver; G89.29 Other chronic pain; M25.552 Pain in left hip; M25.551 Pain in right hip; Y90.3 Blood alcohol level of 60-79 mg/100 ml; Z90.710 Acquired absence of both cervix and uterus; Z56.0 Unemployment, unspecified; Z88.2 Allergy status to sulfonamides; Z88.8 Allergy status to other drugs, medicaments and biological substances; Z98.51 Tubal ligation status; Z79.899 Other long term (current) drug therapy; E87.6 Hypokalemia
CPT/HCPCS: 36415; 71045; 72195; 74176; 80053; 80305; 80320; 81003; 82140; 83605; 83735; 84132; 84145; 85007; 85025; 85610; 85730; 87040; 87081; 87635; 93005; 94640; 94760; 96361; 96365; 99285; C9803; G0378; J0360; J0744; J1650; J2060; J3411; J3480; J3490; J7030; Q9967

== ENCOUNTER 2021-07-31 18:58 | Emergency (ER) | payer MEDICAID ==
[~2021-07-31] VITALS: Ht 157.5 cm; Wt 60.8 kg
[~2021-07-31 18:58] MED LIST changes: -CARV3.12 PO; +CARV6.253 PO; +CHLO25CA10 PO; -FURO20TA4 PO; -HYDR28CR14 TOP; -LOPE2CAP PO; -PANT40TA54 PO; -POTA-197 PO; +POTA-82 PO; -SUCR1ORA12 PO; +THIA100T70 PO
[2021-07-31 19:12] VITALS: BP 130/80
--- NOTE | 2021-07-31 19:22 | NUR ---
SPOKE TO DR WALLER CONCERNING PT. GIVEN VO TO START BASIC BLOOD LABS.
[2021-07-31 20:01] LABS: BASOPHILS % (AUTO) 0.6 % (0-1); EOSINOPHILS # (AUTO) 0.4 X10'3 (0-0.9); EOSINOPHILS % (AUTO) 6.9 % (0-6); HEMATOCRIT 42.8 % (35.0-45.0); HEMOGLOBIN 14.8 g/dl (12.0-16.0); LYMPHOCYTES # (AUTO) 1.3 X10'3 (1.1-4.8); LYMPHOCYTES % (AUTO) 21.6 % (21-51); MEAN CORPUSCULAR HEMOGLOBIN 32.2 PG (27.0-31.0); MEAN CORPUSCULAR HGB CONC 34.5 g/dL (33.0-36.5); MEAN CORPUSCULAR VOLUME 93.3 FL (78-98); MEAN PLATELET VOLUME 8.2 FL (7.4-10.4); MONOCYTES # (AUTO) 0.8 X10'3 (0-0.9); MONOCYTES % (AUTO) 13.8 % (2-12); NEUTROPHILS # (AUTO) 3.3 X10'3 (1.8-7.7); NEUTROPHILS % (AUTO) 57.1 % (42-75); PLATELET COUNT 233 X10'3 (140-440); RED BLOOD COUNT 4.58 X10'6 (4.20-5.60); RED CELL DISTRIBUTION WIDTH 15.6 % (11.5-14.5); WHITE BLOOD COUNT 5.8 X10'3 (4.5-11.0)
[2021-07-31 20:06] LABS: APTT 28 SECONDS (22-32)
[2021-07-31 20:09] LABS: ALANINE AMINOTRANSFERASE 20 U/L (12-78); ALBUMIN 3.3 G/DL (3.4-5.0); ALBUMIN/GLOBULIN RATIO 0.9 (1.1-1.5); ALKALINE PHOSPHATASE 94 IU/L (46-116); ANION GAP 15 (8-16); ASPARTATE AMINO TRANSFERASE 21 U/L (10-37); BILIRUBIN,TOTAL 0.3 MG/DL (0.1-1.0); BLOOD UREA NITROGEN 7 MG/DL (7-18); BUN/CREATININE RATIO 7.4 (6.6-38.0); CALCIUM 8.2 MG/DL (8.5-10.1); CHLORIDE 101 MMOL/L (99-107); CREATININE 0.95 MG/DL (0.40-0.90); GLUCOSE 118 MG/DL (70-104); LIPASE 131 U/L (73-393); POTASSIUM 3.5 MMOL/L (3.5-5.1); SODIUM 139 MMOL/L (135-145); TOTAL CARBON DIOXIDE 23.1 MMOL/L (24-32); TOTAL PROTEIN 6.8 G/DL (6.4-8.2); eGFR 61 ML/MIN
[2021-07-31] MEDS ORDERED: clindamycin 150mg capsule PO ONE (21:10)
[2021-07-31] MEDS ORDERED: diphenhydrAMINE 25mg capsule PO ONE (21:10)
[2021-07-31] MEDS ORDERED: ondansetron 4mg rapidly disintigrating tab PO ONE (21:10)
[2021-07-31] MEDS ORDERED: ONDA8TAB13 PO (21:15)
[2021-07-31] MEDS ORDERED: CLIN150C8 PO (21:15)
[2021-07-31] MEDS ORDERED: PRED20TA PO (21:15)
== END 2021-07-31 21:51 | disposition home or self-care (01) ==
LOC: ER 18:58
DX: R21 Rash and other nonspecific skin eruption (principal); L29.9 Pruritus, unspecified; J43.9 Emphysema, unspecified; I10 Essential (primary) hypertension; M54.9 Dorsalgia, unspecified; Z56.0 Unemployment, unspecified; Z88.1 Allergy status to other antibiotic agents; Z88.2 Allergy status to sulfonamides; Z79.899 Other long term (current) drug therapy
CPT/HCPCS: 36415; 80053; 83605; 83690; 85025; 85730; 99284; Q0163

== ENCOUNTER 2021-10-20 13:10 | Emergency (ER) | payer MEDICAID ==
[~2021-10-20] VITALS: Ht 157.5 cm; Wt 63.6 kg
[~2021-10-20 13:10] MED LIST changes: +CLIN150C8 PO; +ONDA8TAB13 PO
[2021-10-20 14:05] LABS: ALANINE AMINOTRANSFERASE 182 U/L (12-78); ALBUMIN 3.6 G/DL (3.4-5.0); ALBUMIN/GLOBULIN RATIO 0.9 (1.1-1.5); ALKALINE PHOSPHATASE 139 IU/L (46-116); ANION GAP 9 (8-16); ASPARTATE AMINO TRANSFERASE 345 U/L (10-37); BASOPHILS % (AUTO) 0.8 % (0-1); BILIRUBIN,TOTAL 0.3 MG/DL (0.1-1.0); CALCIUM 8.4 MG/DL (8.5-10.1); CHLORIDE 95 MMOL/L (99-107); EOSINOPHILS # (AUTO) 0.2 X10'3 (0-0.9); EOSINOPHILS % (AUTO) 4.1 % (0-6); GLUCOSE 94 MG/DL (70-104); HEMATOCRIT 44.9 % (35.0-45.0); HEMOGLOBIN 15.5 g/dl (12.0-16.0); LYMPHOCYTES # (AUTO) 1.5 X10'3 (1.1-4.8); LYMPHOCYTES % (AUTO) 36.8 % (21-51); MEAN CORPUSCULAR HGB CONC 34.4 g/dL (33.0-36.5); MEAN CORPUSCULAR VOLUME 95.9 FL (78-98); MEAN PLATELET VOLUME 7.7 FL (7.4-10.4); MONOCYTES # (AUTO) 0.6 X10'3 (0-0.9); MONOCYTES % (AUTO) 14.7 % (2-12); NEUTROPHILS # (AUTO) 1.7 X10'3 (1.8-7.7); NEUTROPHILS % (AUTO) 43.6 % (42-75); PLATELET COUNT 213 X10'3 (140-440); POTASSIUM 3.4 MMOL/L (3.5-5.1); RED BLOOD COUNT 4.69 X10'6 (4.20-5.60); RED CELL DISTRIBUTION WIDTH 15.2 % (11.5-14.5); SODIUM 133 MMOL/L (135-145); TOTAL CARBON DIOXIDE 28.9 MMOL/L (24-32); TOTAL PROTEIN 7.5 G/DL (6.4-8.2)
[2021-10-20 14:15] LABS: BLOOD UREA NITROGEN 3 MG/DL (7-18); BUN/CREATININE RATIO 4.6 (6.6-38.0); CREATININE 0.65 MG/DL (0.40-0.90); eGFR > 90 ML/MIN
[2021-10-20] MEDS ORDERED: ondansetron 4mg rapidly disintigrating tab PO ONE (17:15)
[2021-10-20] MEDS ORDERED: LIDOcaine Viscous 15ml cup MM ONE (17:15)
[2021-10-20] MEDS ORDERED: mag hydrox/Alum hydrox/simeth 30ml oral suspension PO ONE (17:15)
[2021-10-20] MEDS ORDERED: famotidine 20mg tablet PO ONE (17:15)
[2021-10-20 17:33] LABS: LIPASE 53 U/L (73-393)
[2021-10-20] MEDS ORDERED: PANT-47 PO (17:50)
[2021-10-20] MEDS ORDERED: ONDA4TAB12 PO (17:50)
[2021-10-20 21:09] VITALS: BP 159/95
== END 2021-10-20 21:12 | disposition home or self-care (01) ==
LOC: ER 13:11
DX: B34.9 Viral infection, unspecified (principal); Z20.822 Contact with and (suspected) exposure to COVID-19; K29.70 Gastritis, unspecified, without bleeding; I10 Essential (primary) hypertension; G89.29 Other chronic pain; M54.9 Dorsalgia, unspecified; J43.9 Emphysema, unspecified; Z90.49 Acquired absence of other specified parts of digestive tract; Z95.1 Presence of aortocoronary bypass graft; Z88.1 Allergy status to other antibiotic agents; Z88.2 Allergy status to sulfonamides; Z88.8 Allergy status to other drugs, medicaments and biological substances; Z79.899 Other long term (current) drug therapy
CPT/HCPCS: 36415; 71045; 80053; 83690; 83880; 84484; 85025; 87811; 93005; 99285

== ENCOUNTER 2021-10-28 11:13 | Emergency (ER) | payer MEDICAID ==
[~2021-10-28] VITALS: Ht 157.5 cm; Wt 56.8 kg
[~2021-10-28 11:13] MED LIST changes: +ONDA4TAB12 PO; +PANT-47 PO
[2021-10-28] MEDS ORDERED: normal saline 1000ML IV soln IVB ONE (11:40)
[2021-10-28] MEDS ORDERED: normal saline 1000ml 1,000 ML IV ONE (11:40)
[2021-10-28 11:48] LABS: BASOPHILS % (AUTO) 0.8 % (0-1); EOSINOPHILS # (AUTO) 0.1 X10'3 (0-0.9); EOSINOPHILS % (AUTO) 2.1 % (0-6); HEMATOCRIT 47.4 % (35.0-45.0); HEMOGLOBIN 16.4 g/dl (12.0-16.0); LYMPHOCYTES # (AUTO) 0.9 X10'3 (1.1-4.8); LYMPHOCYTES % (AUTO) 23.6 % (21-51); MEAN CORPUSCULAR HGB CONC 34.6 g/dL (33.0-36.5); MEAN CORPUSCULAR VOLUME 95.2 FL (78-98); MEAN PLATELET VOLUME 8.3 FL (7.4-10.4); MONOCYTES # (AUTO) 0.4 X10'3 (0-0.9); MONOCYTES % (AUTO) 9.6 % (2-12); NEUTROPHILS # (AUTO) 2.5 X10'3 (1.8-7.7); NEUTROPHILS % (AUTO) 63.9 % (42-75); PLATELET COUNT 120 X10'3 (140-440); RED BLOOD COUNT 4.98 X10'6 (4.20-5.60); RED CELL DISTRIBUTION WIDTH 15.2 % (11.5-14.5); WHITE BLOOD COUNT 3.9 X10'3 (4.5-11.0)
[2021-10-28 12:09] LABS: ALANINE AMINOTRANSFERASE 283 U/L (12-78); ALBUMIN 3.7 G/DL (3.4-5.0); ALBUMIN/GLOBULIN RATIO 1.1 (1.1-1.5); ALKALINE PHOSPHATASE 149 IU/L (46-116); AMYLASE 26 U/L (25-115); ANION GAP 11 (8-16); ASPARTATE AMINO TRANSFERASE 439 U/L (10-37); BILIRUBIN,TOTAL 1.2 MG/DL (0.1-1.0); BLOOD UREA NITROGEN 4 MG/DL (7-18); BUN/CREATININE RATIO 6.6 (6.6-38.0); CALCIUM 8.7 MG/DL (8.5-10.1); CHLORIDE 97 MMOL/L (99-107); CREATININE 0.61 MG/DL (0.40-0.90); GLUCOSE 113 MG/DL (70-104); LIPASE 64 U/L (73-393); POTASSIUM 3.3 MMOL/L (3.5-5.1); SODIUM 134 MMOL/L (135-145); TOTAL CARBON DIOXIDE 25.8 MMOL/L (24-32); TOTAL PROTEIN 7.1 G/DL (6.4-8.2); eGFR > 90 ML/MIN
[2021-10-28 12:48] LABS: ETHANOL < 0.010 GM/DL (0.0-0.010)
[2021-10-28] MEDS ORDERED: chlordiazePOXIDE 25mg capsule PO ONE (14:05)
[2021-10-28] MEDS ORDERED: CHLO25CA10 PO (14:07)
[2021-10-28 14:09] LABS: CLARITY,URINE CLEAR (Clear); COLOR,URINE YELLOW (Yellow); GLUCOSE, URINE NEGATIVE (Neg); KETONES,URINE NEGATIVE (Neg); LEUKOCYTE ESTERASE ,URINE NEGATIVE (Neg); NITRITES, URINE NEGATIVE (Neg); OCCULT BLOOD,URINE NEGATIVE (Neg); PH,URINE 7.5 (4.8-8.0); PROTEIN,URINE NEGATIVE (Neg); UROBILINOGEN,URINE 0.2 E.U/dL (0.2-1.0)
[2021-10-28 14:12] LABS: UA COLLECTION TYPE CLN CATCH MIDSTREAM
--- NOTE | 2021-10-28 14:28 | NUR ---
Met with patient in regards to alcohol use and to see if patient wanted resources for treatment options. Patient is interested in inpatient and outpatient services. I gave patient [facility] number to get process started. I talked to patient about medication to help with cravings and she does have Naltrexone so I encouraged her to start it.
[2021-10-28 15:45] VITALS: BP 162/94
== END 2021-10-28 16:28 | disposition home or self-care (01) ==
LOC: ER 11:13
DX: F10.20 Alcohol dependence, uncomplicated (principal); Y90.0 Blood alcohol level of less than 20 mg/100 ml; J44.9 Chronic obstructive pulmonary disease, unspecified; G89.29 Other chronic pain; M54.50 Low back pain, unspecified; F17.200 Nicotine dependence, unspecified, uncomplicated; Z88.1 Allergy status to other antibiotic agents; Z88.2 Allergy status to sulfonamides; Z91.041 Radiographic dye allergy status; Z56.0 Unemployment, unspecified; Z90.710 Acquired absence of both cervix and uterus; Z98.51 Tubal ligation status
CPT/HCPCS: 36415; 80053; 80320; 81003; 82009; 82150; 83605; 83690; 85025; 96360; 99285; J7030

== ENCOUNTER 2023-04-27 14:00 | Emergency (ER) | payer MEDICAID ==
[~2023-04-27] VITALS: Ht 157.5 cm; Wt 56.8 kg
[~2023-04-27 14:00] MED LIST changes: +CLIN-214 PO; -CLIN150C8 PO; +POTA-366 PO; -POTA-82 PO
[2023-04-27 16:29] VITALS: BP 158/97; PULSE 85; RESP 16; TEMP 98.7; O2SAT 98
== END 2023-04-27 23:43 | disposition left against medical advice (07) ==
LOC: ER 14:00
DX: R53.1 Weakness (principal); Z53.21 Procedure and treatment not carried out due to patient leaving prior to being seen by health care provider
CPT/HCPCS: 99281

== ENCOUNTER 2023-04-30 14:12 | Inpatient (IN) | payer MEDICAID ==
[~2023-04-30] VITALS: Ht 157.5 cm; Wt 56.8 kg
[2023-04-30 14:28] LABS: BASOPHILS % (AUTO) 0.7 % (0-1); EOSINOPHILS # (AUTO) 0.1 X10'3 (0-0.9); EOSINOPHILS % (AUTO) 1.5 % (0-6); HEMATOCRIT 42.2 % (35.0-45.0); HEMOGLOBIN 14.7 g/dl (12.0-16.0); LYMPHOCYTES # (AUTO) 1.5 X10'3 (1.1-4.8); LYMPHOCYTES % (AUTO) 23.2 % (21-51); MEAN CORPUSCULAR HEMOGLOBIN 33.4 PG (27.0-31.0); MEAN CORPUSCULAR HGB CONC 34.8 g/dL (33.0-36.5); MEAN PLATELET VOLUME 7.6 FL (7.4-10.4); MONOCYTES # (AUTO) 0.8 X10'3 (0-0.9); MONOCYTES % (AUTO) 12.4 % (2-12); NEUTROPHILS % (AUTO) 62.2 % (42-75); PLATELET COUNT 207 X10'3 (140-440); RED BLOOD COUNT 4.39 X10'6 (4.20-5.60); RED CELL DISTRIBUTION WIDTH 15.1 % (11.5-14.5); WHITE BLOOD COUNT 6.5 X10'3 (4.5-11.0)
[2023-04-30 14:52] LABS: ALANINE AMINOTRANSFERASE 21 U/L (12-78); ALBUMIN 3.6 G/DL (3.4-5.0); ALKALINE PHOSPHATASE 115 IU/L (46-116); ANION GAP 13 (8-16); ASPARTATE AMINO TRANSFERASE 27 U/L (10-37); BILIRUBIN,TOTAL 0.7 MG/DL (0.1-1.0); BLOOD UREA NITROGEN 5 MG/DL (7-18); BUN/CREATININE RATIO 5.3 (10.0-20.0); CALCIUM 8.5 MG/DL (8.5-10.1); CHLORIDE 98 MMOL/L (99-107); CREATININE 0.94 MG/DL (0.40-0.90); GLUCOSE 143 MG/DL (70-104); PRO BRAIN NATRIURETIC PEPTIDE 103 PG/ML (0-125); SODIUM 137 MMOL/L (135-145); TOTAL CARBON DIOXIDE 26.3 MMOL/L (24-32); TOTAL PROTEIN 7.3 G/DL (6.4-8.2); eCRCL 52 ML/MIN; eGFR 61 ML/MIN
[2023-04-30] MEDS ORDERED: potassium chloride 8mEq ER tablet PO STA (23:41)
[2023-04-30] MEDS ORDERED: normal saline 1000ml 1,000 ML IV ONE (23:45)
[2023-04-30] MEDS ORDERED: diazepam inj 5 MG/ML inj. IV STA (23:56)
[2023-05-01] MEDS ORDERED: acetaminophen 650mg rectal suppository RC PRN (00:05)
[2023-05-01] MEDS ORDERED: magnesium 4gm in 100ml NS 100 ML IV PRN ×2 (00:05→08:30)
[2023-05-01] MEDS ORDERED: HYDROcodone/acetaminophen 10/325mg tab PO PRN (00:05)
[2023-05-01] MEDS ORDERED: ondansetron/PF 4mg/2ml inj IV PRN (00:05)
[2023-05-01] MEDS ORDERED: potassium Cl 40MEQ/1/2NS 520ml 520 ML IV PRN ×2 (00:05→08:30)
[2023-05-01] MEDS ORDERED: diphenhydrAMINE 50 mg/ml inj IV PRN (00:05)
[2023-05-01] MEDS ORDERED: diphenhydrAMINE 25mg capsule PO PRN (00:05)
[2023-05-01] MEDS ORDERED: HYDROcodone/acetaminophen 5mg/325mg tablet PO PRN (00:05)
[2023-05-01] MEDS ORDERED: acetaminophen 325mg tablet PO PRN ×2 (00:05)
[2023-05-01] MEDS ORDERED: haloperidol lactate 5mg/ml inj IM PRN (00:05)
[2023-05-01] MEDS ORDERED: bisacodyl 10mg suppository rectal RC PRN (00:05)
[2023-05-01] MEDS ORDERED: magnesium hydroxide 30ml (MOM) UD suspension PO PRN (00:05)
[2023-05-01] MEDS ORDERED: dextrose 50%-water 50ml dispensing syringe IV PRN (00:05)
[2023-05-01] MEDS ORDERED: potassium Cl 20 mEq SR tablet PO PRN ×2 (00:05→08:30)
[2023-05-01] MEDS ORDERED: magnesium 2GM in 50ml NS 50 ML IV PRN ×2 (00:05→08:30)
[2023-05-01] MEDS: dextrose 5%-1/2 normal saline 1,000 ML IV SCH ×3 (00:05→20:21)
[2023-05-01] MEDS ORDERED: metoclopramide 5 mg/ml inj IV PRN (00:05)
[2023-05-01] MEDS ORDERED: haloperidol 5mg tablet PO PRN (00:05)
[2023-05-01] MEDS ORDERED: morphine 2 MG/ML inj. syringe IV PRN (00:05)
[2023-05-01] MEDS ORDERED: magnesium Cl slow-release 64mg tablet PO PRN (00:05)
[2023-05-01] MEDS ORDERED: mag hydrox/Alum hydrox/simeth 30ml oral suspension PO PRN (00:05)
[2023-05-01] MEDS ORDERED: ondansetron 4mg rapidly disintigrating tab PO PRN (00:05)
[2023-05-01 00:08] LABS: ETHANOL 97 MG/DL (<10)
[2023-05-01 01:39] LABS: APTT 29 SECONDS (22-32); INR 1.1 INR
[2023-05-01 01:42] LABS: D-DIMER < 0.19 MG/L FEU (0-0.50)
[2023-05-01 01:43] LABS: OSMOLALITY 286 MOSM/K (280-300)
[2023-05-01 01:48] LABS: CREATINE KINASE 69 U/L (26-192); LIPASE 23 U/L (16-77); MAGNESIUM 1.5 MG/DL (1.5-2.4); PHOSPHORUS 2.5 MG/DL (2.3-4.5); POTASSIUM 3.2 MMOL/L (3.5-5.1); THYROID STIMULATING HORMONE 2.45 ulU/ml (0.34-4.50)
[2023-05-01] MEDS: LORazepam 2 mg/ml vial IV PRN ×2 (05:36→13:57)
[2023-05-01] MEDS ORDERED: nicotine 21mg patch - 24 hr TD SCH (08:00)
[2023-05-01] MEDS: docusate sod 100mg capsule PO SCH ×2 (08:00→19:50)
[2023-05-01] MEDS: thiamine 100mg/ml 2ml inj. IV SCH ×3 (08:36→20:20)
[2023-05-01] MEDS: potassium Cl 20 mEq SR tablet PO PRN ×3 (08:37→17:30)
[2023-05-01] MEDS: heparin, porcine 5000 units/ml vial SQ SCH ×2 (08:37→20:20)
[2023-05-01] MEDS: K and/or MAG REPLACEMENT MC SCH ×3 (08:37→19:52)
[2023-05-01] MEDS: folic acid 1mg/0.2ml inj IV SCH (09:41)
[2023-05-01 10:08] LABS: BASOPHILS % (AUTO) 0.6 % (0-1); EOSINOPHILS # (AUTO) 0.1 X10'3 (0-0.9); EOSINOPHILS % (AUTO) 2.3 % (0-6); HEMOGLOBIN 13.6 g/dl (12.0-16.0); LYMPHOCYTES # (AUTO) 1.6 X10'3 (1.1-4.8); MEAN CORPUSCULAR HEMOGLOBIN 32.9 PG (27.0-31.0); MEAN CORPUSCULAR HGB CONC 33.9 g/dL (33.0-36.5); MEAN PLATELET VOLUME 8.6 FL (7.4-10.4); MONOCYTES # (AUTO) 0.6 X10'3 (0-0.9); NEUTROPHILS # (AUTO) 3.4 X10'3 (1.8-7.7); NEUTROPHILS % (AUTO) 59.1 % (42-75); PLATELET COUNT 181 X10'3 (140-440); RED BLOOD COUNT 4.12 X10'6 (4.20-5.60); RED CELL DISTRIBUTION WIDTH 15.7 % (11.5-14.5); WHITE BLOOD COUNT 5.8 X10'3 (4.5-11.0)
[2023-05-01 10:19] LABS: ALANINE AMINOTRANSFERASE 17 U/L (12-78); ALBUMIN 3.4 G/DL (3.4-5.0); ALKALINE PHOSPHATASE 104 IU/L (46-116); ANION GAP 8 (8-16); ASPARTATE AMINO TRANSFERASE 30 U/L (10-37); BILIRUBIN,TOTAL 1.4 MG/DL (0.1-1.0); BLOOD UREA NITROGEN 4 MG/DL (7-18); BUN/CREATININE RATIO 5.3 (10.0-20.0); CALCIUM 8.5 MG/DL (8.5-10.1); CHLORIDE 103 MMOL/L (99-107); CREATININE 0.75 MG/DL (0.40-0.90); GLUCOSE 98 MG/DL (70-104); POTASSIUM 3.2 MMOL/L (3.5-5.1); SODIUM 140 MMOL/L (135-145); TOTAL CARBON DIOXIDE 29.2 MMOL/L (24-32); TOTAL PROTEIN 6.7 G/DL (6.4-8.2); eCRCL 65 ML/MIN; eGFR 79 ML/MIN
[2023-05-01 13:30] VITALS: BP 145/83; PULSE 85; RESP 16; TEMP 97.7; O2SAT 97
[2023-05-01 14:00] VITALS: RESP 16; O2SAT 97
[2023-05-01 15:26] VITALS: BP 154/85; PULSE 87; RESP 17; TEMP 97.9; O2SAT 97
[2023-05-01 18:00] VITALS: BP 151/89; PULSE 87; RESP 20; TEMP 98.1; O2SAT 100
[2023-05-01] MEDS ORDERED: ipratropium/albuterol 3ml nebule NEB PRN (19:40)
[2023-05-01] MEDS ORDERED: albuterol 2.5 MG/3 ML nebule NEB PRN (19:40)
[2023-05-01] MEDS: carvedilol 6.25mg tablet PO SCH (20:20)
[2023-05-01] MEDS: chlordiazePOXIDE 25mg capsule PO SCH (20:20)
[2023-05-01] MEDS ORDERED: temazepam 15mg capsule PO PRN (21:00)
[2023-05-01 22:00] VITALS: BP 128/75; PULSE 89; RESP 14; TEMP 97; O2SAT 97
[2023-05-01 23:56] VITALS: PULSE 87; RESP 18; O2SAT 96
[2023-05-02] VITALS (8 sets, daily range): BP systolic 134–147; BP diastolic 69–90; PULSE 74–85; RESP 13–18; TEMP 97–98.8; O2SAT 97–99
[2023-05-02] MEDS: chlordiazePOXIDE 25mg capsule PO SCH ×4 (01:42→19:06)
[2023-05-02] MEDS: dextrose 5%-1/2 normal saline 1,000 ML IV SCH ×2 (05:19→17:01)
[2023-05-02 05:48] LABS: BASOPHILS % (AUTO) 0.5 % (0-1); EOSINOPHILS # (AUTO) 0.1 X10'3 (0-0.9); EOSINOPHILS % (AUTO) 3.4 % (0-6); HEMATOCRIT 34.3 % (35.0-45.0); HEMOGLOBIN 11.8 g/dl (12.0-16.0); LYMPHOCYTES # (AUTO) 1.6 X10'3 (1.1-4.8); LYMPHOCYTES % (AUTO) 36.3 % (21-51); MEAN CORPUSCULAR HEMOGLOBIN 33.3 PG (27.0-31.0); MEAN CORPUSCULAR HGB CONC 34.3 g/dL (33.0-36.5); MEAN PLATELET VOLUME 8.4 FL (7.4-10.4); MONOCYTES # (AUTO) 0.5 X10'3 (0-0.9); MONOCYTES % (AUTO) 10.8 % (2-12); NEUTROPHILS # (AUTO) 2.1 X10'3 (1.8-7.7); PLATELET COUNT 125 X10'3 (140-440); RED BLOOD COUNT 3.54 X10'6 (4.20-5.60); RED CELL DISTRIBUTION WIDTH 15.6 % (11.5-14.5); WHITE BLOOD COUNT 4.4 X10'3 (4.5-11.0)
[2023-05-02 05:53] LABS: ALANINE AMINOTRANSFERASE 16 U/L (12-78); ALBUMIN 2.9 G/DL (3.4-5.0); ALKALINE PHOSPHATASE 91 IU/L (46-116); ANION GAP 9 (8-16); ASPARTATE AMINO TRANSFERASE 24 U/L (10-37); BILIRUBIN,TOTAL 0.8 MG/DL (0.1-1.0); BLOOD UREA NITROGEN 2 MG/DL (7-18); BUN/CREATININE RATIO 3.6 (10.0-20.0); CALCIUM 8.2 MG/DL (8.5-10.1); CHLORIDE 104 MMOL/L (99-107); CREATININE 0.55 MG/DL (0.40-0.90); GLUCOSE 103 MG/DL (70-104); MAGNESIUM 1.5 MG/DL (1.5-2.4); POTASSIUM 3.2 MMOL/L (3.5-5.1); SODIUM 138 MMOL/L (135-145); TOTAL CARBON DIOXIDE 25.4 MMOL/L (24-32); TOTAL PROTEIN 5.9 G/DL (6.4-8.2); eCRCL 88 ML/MIN; eGFR > 90 ML/MIN
[2023-05-02] MEDS: K and/or MAG REPLACEMENT MC SCH ×2 (08:00→19:05)
[2023-05-02] MEDS: heparin, porcine 5000 units/ml vial SQ SCH ×2 (08:00→19:11)
[2023-05-02] MEDS: folic acid 1mg/0.2ml inj IV SCH (08:00)
[2023-05-02] MEDS: thiamine 100mg/ml 2ml inj. IV SCH ×3 (08:00→21:32)
[2023-05-02] MEDS: carvedilol 6.25mg tablet PO SCH ×2 (08:00→19:10)
[2023-05-02] MEDS: docusate sod 100mg capsule PO SCH ×2 (08:00→19:07)
[2023-05-02] MEDS ORDERED: nicotine 7mg patch - 24hr TD SCH (11:41)
[2023-05-02] MEDS: LORazepam 2 mg/ml vial IV PRN ×2 (12:02→19:11)
[2023-05-02] MEDS: potassium Cl 20 mEq SR tablet PO PRN ×2 (17:01→19:06)
[2023-05-02] MEDS: LIPASE/PROTEASE/AMYLASE 4,200 unit CAPSULE.DR PO SCH (17:04)
[2023-05-03] VITALS (9 sets, daily range): BP systolic 114–141; BP diastolic 62–79; PULSE 68–84; RESP 16–18; TEMP 97.1–98.9; O2SAT 95–98
[2023-05-03] MEDS ORDERED: LORazepam 1 MG tablet PO PRN (00:05)
[2023-05-03] MEDS: chlordiazePOXIDE 25mg capsule PO SCH ×4 (01:46→19:58)
[2023-05-03] MEDS: potassium Cl 20 mEq SR tablet PO PRN ×4 (01:46→19:59)
[2023-05-03] MEDS: dextrose 5%-1/2 normal saline 1,000 ML IV SCH ×3 (01:50→22:09)
[2023-05-03 06:24] LABS: ALANINE AMINOTRANSFERASE 11 U/L (12-78); ALBUMIN 2.7 G/DL (3.4-5.0); ALBUMIN/GLOBULIN RATIO 0.9 (1.1-1.5); ALKALINE PHOSPHATASE 82 IU/L (46-116); ANION GAP 8 (8-16); ASPARTATE AMINO TRANSFERASE 26 U/L (10-37); BILIRUBIN,TOTAL 0.4 MG/DL (0.1-1.0); BLOOD UREA NITROGEN 2 MG/DL (7-18); CALCIUM 8.2 MG/DL (8.5-10.1); CHLORIDE 106 MMOL/L (99-107); CREATININE 0.67 MG/DL (0.40-0.90); GLUCOSE 103 MG/DL (70-104); MAGNESIUM 1.6 MG/DL (1.5-2.4); POTASSIUM 3.4 MMOL/L (3.5-5.1); SODIUM 140 MMOL/L (135-145); TOTAL CARBON DIOXIDE 25.8 MMOL/L (24-32); TOTAL PROTEIN 5.7 G/DL (6.4-8.2); eCRCL 72 ML/MIN; eGFR 90 ML/MIN
[2023-05-03 06:30] LABS: BASOPHILS % (AUTO) 0.6 % (0-1); EOSINOPHILS # (AUTO) 0.1 X10'3 (0-0.9); EOSINOPHILS % (AUTO) 3.2 % (0-6); HEMATOCRIT 34.1 % (35.0-45.0); HEMOGLOBIN 11.8 g/dl (12.0-16.0); LYMPHOCYTES # (AUTO) 1.3 X10'3 (1.1-4.8); LYMPHOCYTES % (AUTO) 30.4 % (21-51); MEAN CORPUSCULAR HEMOGLOBIN 33.7 PG (27.0-31.0); MEAN CORPUSCULAR HGB CONC 34.5 g/dL (33.0-36.5); MEAN CORPUSCULAR VOLUME 97.6 FL (78-98); MEAN PLATELET VOLUME 8.6 FL (7.4-10.4); MONOCYTES # (AUTO) 0.5 X10'3 (0-0.9); MONOCYTES % (AUTO) 10.4 % (2-12); NEUTROPHILS # (AUTO) 2.4 X10'3 (1.8-7.7); NEUTROPHILS % (AUTO) 55.4 % (42-75); PLATELET COUNT 122 X10'3 (140-440); RED CELL DISTRIBUTION WIDTH 15.5 % (11.5-14.5); WHITE BLOOD COUNT 4.3 X10'3 (4.5-11.0)
[2023-05-03] MEDS: docusate sod 100mg capsule PO SCH ×2 (08:00→20:00)
[2023-05-03] MEDS: K and/or MAG REPLACEMENT MC SCH ×2 (08:00→20:00)
[2023-05-03] MEDS: heparin, porcine 5000 units/ml vial SQ SCH ×2 (08:00→19:58)
[2023-05-03] MEDS: LIPASE/PROTEASE/AMYLASE 4,200 unit CAPSULE.DR PO SCH ×3 (08:41→18:02)
[2023-05-03] MEDS: carvedilol 6.25mg tablet PO SCH ×2 (08:44→19:55)
[2023-05-03] MEDS: nicotine 14mg patch - 24hr TD SCH (08:44)
[2023-05-03] MEDS: folic acid 1mg/0.2ml inj IV SCH (08:45)
[2023-05-03] MEDS: thiamine 100mg/ml 2ml inj. IV SCH ×3 (09:03→19:55)
[2023-05-03] MEDS: LORazepam 2 mg/ml vial IV PRN ×2 (15:20→22:03)
[2023-05-03] MEDS ORDERED: nicotine 14mg patch - 24hr TD ONE (19:15)
[2023-05-03 22:51] LABS: BILIRUBIN,URINE NEGATIVE (Neg); CLARITY,URINE CLEAR (Clear); COLOR,URINE YELLOW (Yellow); GLUCOSE, URINE NEGATIVE (Neg); KETONES,URINE NEGATIVE (Neg); LEUKOCYTE ESTERASE ,URINE NEGATIVE (Neg); NITRITES, URINE NEGATIVE (Neg); OCCULT BLOOD,URINE NEGATIVE (Neg); PROTEIN,URINE NEGATIVE (Neg); UROBILINOGEN,URINE 0.2 E.U/dL (0.2-1.0)
[2023-05-03 22:54] LABS: URINE AMPHETAMINE SCREEN NEGATIVE (Neg); URINE BARBITUATE SCREEN NEGATIVE (Neg); URINE BENZODIAZEPINES SCREEN POSITIVE (Neg); URINE CANNABINOID SCREEN NEGATIVE (Neg); URINE COCAINE SCREEN NEGATIVE (Neg); URINE METHADONE SCREEN NEGATIVE (Neg); URINE OPIATE SCREEN POSITIVE (Neg); URINE PHENCYCLIDINE SCREEN NEGATIVE (Neg)
[2023-05-03 23:05] LABS: UA COLLECTION TYPE NON-SPECIFIED
[2023-05-04] MEDS: chlordiazePOXIDE 25mg capsule PO SCH ×3 (01:54→13:33)
[2023-05-04 02:00] VITALS: BP 142/79; PULSE 72; RESP 18; TEMP 97.1; O2SAT 96
[2023-05-04 06:00] VITALS: BP 153/85; PULSE 74; RESP 17; TEMP 97.8; O2SAT 93
[2023-05-04 06:55] LABS: BASOPHILS % (AUTO) 0.5 % (0-1); EOSINOPHILS # (AUTO) 0.2 X10'3 (0-0.9); EOSINOPHILS % (AUTO) 2.9 % (0-6); HEMATOCRIT 35.4 % (35.0-45.0); HEMOGLOBIN 11.8 g/dl (12.0-16.0); LYMPHOCYTES # (AUTO) 1.4 X10'3 (1.1-4.8); LYMPHOCYTES % (AUTO) 24.8 % (21-51); MEAN CORPUSCULAR HEMOGLOBIN 33.1 PG (27.0-31.0); MEAN CORPUSCULAR HGB CONC 33.4 g/dL (33.0-36.5); MEAN CORPUSCULAR VOLUME 98.9 FL (78-98); MEAN PLATELET VOLUME 8.6 FL (7.4-10.4); MONOCYTES # (AUTO) 0.5 X10'3 (0-0.9); MONOCYTES % (AUTO) 8.6 % (2-12); NEUTROPHILS # (AUTO) 3.6 X10'3 (1.8-7.7); NEUTROPHILS % (AUTO) 63.2 % (42-75); PLATELET COUNT 114 X10'3 (140-440); RED BLOOD COUNT 3.58 X10'6 (4.20-5.60); WHITE BLOOD COUNT 5.7 X10'3 (4.5-11.0)
[2023-05-04 07:02] LABS: ALANINE AMINOTRANSFERASE 11 U/L (12-78); ALBUMIN 2.7 G/DL (3.4-5.0); ALBUMIN/GLOBULIN RATIO 0.9 (1.1-1.5); ALKALINE PHOSPHATASE 80 IU/L (46-116); ANION GAP 7 (8-16); ASPARTATE AMINO TRANSFERASE 23 U/L (10-37); BILIRUBIN,TOTAL 0.4 MG/DL (0.1-1.0); BLOOD UREA NITROGEN 1 MG/DL (7-18); BUN/CREATININE RATIO 1.4 (10.0-20.0); CALCIUM 8.3 MG/DL (8.5-10.1); CHLORIDE 107 MMOL/L (99-107); CREATININE 0.69 MG/DL (0.40-0.90); GLUCOSE 107 MG/DL (70-104); MAGNESIUM 1.6 MG/DL (1.5-2.4); POTASSIUM 3.6 MMOL/L (3.5-5.1); SODIUM 138 MMOL/L (135-145); TOTAL CARBON DIOXIDE 23.8 MMOL/L (24-32); TOTAL PROTEIN 5.7 G/DL (6.4-8.2); eCRCL 70 ML/MIN; eGFR 87 ML/MIN
[2023-05-04] MEDS ORDERED: pantoprazole 40mg Tablet.DR PO SCH (07:30)
[2023-05-04] MEDS: docusate sod 100mg capsule PO SCH (08:00)
[2023-05-04] MEDS: K and/or MAG REPLACEMENT MC SCH (08:00)
[2023-05-04] MEDS: LIPASE/PROTEASE/AMYLASE 4,200 unit CAPSULE.DR PO SCH ×2 (08:56→13:33)
[2023-05-04] MEDS: carvedilol 6.25mg tablet PO SCH (08:57)
[2023-05-04] MEDS: heparin, porcine 5000 units/ml vial SQ SCH (08:57)
[2023-05-04] MEDS: dextrose 5%-1/2 normal saline 1,000 ML IV SCH (08:58)
[2023-05-04] MEDS: nicotine 14mg patch - 24hr TD SCH (08:58)
[2023-05-04 11:00] VITALS: BP 116/62; PULSE 83; RESP 18; TEMP 98.1; O2SAT 96
[2023-05-04] MEDS ORDERED: NICO-631 TD (12:31)
[2023-05-05] MEDS ORDERED: LORazepam 2 mg/ml vial IV PRN (00:05)
[2023-05-05] MEDS ORDERED: LORazepam 1 MG tablet PO PRN (00:05)
[2023-05-05] MEDS ORDERED: thiamine 100mg tablet PO SCH (08:00)
[2023-05-05] MEDS ORDERED: folic acid 1mg tablet PO SCH (08:00)
== END 2023-05-04 13:32 | disposition home or self-care (01) | DRG 469 ==
LOC: ER 14:12 → ED HOLD 05-01 00:10 → PCU 3S 05-01 13:26
PROVIDERS: ADMIT Family Medicine; ATTEND Family Medicine
DX: N17.9 Acute kidney failure, unspecified (principal); I50.9 Heart failure, unspecified; J84.10 Pulmonary fibrosis, unspecified; I13.0 Hypertensive heart and chronic kidney disease with heart failure and stage 1 through stage 4 chronic kidney disease, or unspecified chronic kidney disease; K70.30 Alcoholic cirrhosis of liver without ascites; K76.6 Portal hypertension; E87.6 Hypokalemia; G89.4 Chronic pain syndrome; M47.816 Spondylosis without myelopathy or radiculopathy, lumbar region; K21.9 Gastro-esophageal reflux disease without esophagitis; N18.9 Chronic kidney disease, unspecified; K86.1 Other chronic pancreatitis; F10.239 Alcohol dependence with withdrawal, unspecified; F10.229 Alcohol dependence with intoxication, unspecified; J43.9 Emphysema, unspecified; Z90.710 Acquired absence of both cervix and uterus; Z98.51 Tubal ligation status; Z88.1 Allergy status to other antibiotic agents; Z88.2 Allergy status to sulfonamides; Z88.3 Allergy status to other anti-infective agents; Z72.0 Tobacco use; Z79.899 Other long term (current) drug therapy; Z56.0 Unemployment, unspecified; Z71.41 Alcohol abuse counseling and surveillance of alcoholic; Z71.6 Tobacco abuse counseling
CPT/HCPCS: 36415; 71045; 80053; 80305; 80320; 81003; 82550; 83690; 83735; 83880; 83930; 84100; 84132; 84443; 84484; 85025; 85379; 85610; 85730; 87081; 93005; 93975; 94760; 96365; 96375; 97161; 97530; 99285; G0378; J1644; J2060; J3360; J3411; J3490; J7030

== ENCOUNTER 2023-06-03 10:46 | Emergency (ER) | payer MEDICAID ==
[~2023-06-03] VITALS: Ht 157.5 cm; Wt 56.8 kg
[~2023-06-03 10:46] MED LIST changes: +NICO-631 TD
[2023-06-03 11:40] VITALS: BP 121/81; PULSE 81; RESP 18; TEMP 97.8; O2SAT 98
[2023-06-03 14:28] LABS: BASOPHILS % (AUTO) 0.4 % (0-1); EOSINOPHILS # (AUTO) 0.3 X10'3 (0-0.9); EOSINOPHILS % (AUTO) 2.5 % (0-6); HEMATOCRIT 41.7 % (35.0-45.0); HEMOGLOBIN 13.8 g/dl (12.0-16.0); LYMPHOCYTES # (AUTO) 1.9 X10'3 (1.1-4.8); LYMPHOCYTES % (AUTO) 15.6 % (21-51); MEAN CORPUSCULAR HEMOGLOBIN 31.2 PG (27.0-31.0); MEAN CORPUSCULAR HGB CONC 33.1 g/dL (33.0-36.5); MEAN CORPUSCULAR VOLUME 94.3 FL (78-98); MEAN PLATELET VOLUME 9.6 FL (7.4-10.4); MONOCYTES # (AUTO) 1.1 X10'3 (0-0.9); MONOCYTES % (AUTO) 8.7 % (2-12); NEUTROPHILS % (AUTO) 72.8 % (42-75); PLATELET COUNT 203 X10'3 (140-440); RED BLOOD COUNT 4.42 X10'6 (4.20-5.60); RED CELL DISTRIBUTION WIDTH 15.9 % (11.5-14.5); WHITE BLOOD COUNT 12.3 X10'3 (4.5-11.0)
[2023-06-03 14:46] LABS: ALANINE AMINOTRANSFERASE 17 U/L (12-78); ALBUMIN 3.9 G/DL (3.4-5.0); ALKALINE PHOSPHATASE 70 IU/L (46-116); ANION GAP 9 (8-16); ASPARTATE AMINO TRANSFERASE 15 U/L (10-37); BILIRUBIN,TOTAL 0.4 MG/DL (0.1-1.0); BLOOD UREA NITROGEN 7 MG/DL (7-18); BUN/CREATININE RATIO 8.8 (10.0-20.0); CALCIUM 8.9 MG/DL (8.5-10.1); CHLORIDE 100 MMOL/L (99-107); ETHANOL < 10 MG/DL (<10); GLUCOSE 107 MG/DL (70-104); LIPASE 24 U/L (16-77); POTASSIUM 3.8 MMOL/L (3.5-5.1); SODIUM 136 MMOL/L (135-145); TOTAL CARBON DIOXIDE 27.5 MMOL/L (24-32); TOTAL PROTEIN 7.7 G/DL (6.4-8.2); eCRCL 61 ML/MIN; eGFR 74 ML/MIN
[2023-06-03] MEDS ORDERED: CIPR500T5 PO (15:41)
[2023-06-03] MEDS ORDERED: METR-159 PO (15:41)
== END 2023-06-03 16:04 | disposition home or self-care (01) ==
LOC: ER 10:47
DX: K57.92 Diverticulitis of intestine, part unspecified, without perforation or abscess without bleeding (principal); R19.7 Diarrhea, unspecified; I10 Essential (primary) hypertension; J44.9 Chronic obstructive pulmonary disease, unspecified; Z98.890 Other specified postprocedural states; Z56.0 Unemployment, unspecified; Z90.710 Acquired absence of both cervix and uterus; Z88.2 Allergy status to sulfonamides; Z88.8 Allergy status to other drugs, medicaments and biological substances; Z79.899 Other long term (current) drug therapy
CPT/HCPCS: 36415; 74176; 80053; 80320; 83690; 85025; 99284

== ENCOUNTER 2024-04-19 13:45 | Emergency (ER) | payer MEDICAID ==
[~2024-04-19] VITALS: Ht 157.5 cm; Wt 56.1 kg
[~2024-04-19 13:45] MED LIST changes: +ONDA-243 PO; +ONDA-245 PO; -ONDA4TAB12 PO; -ONDA8TAB13 PO
[2024-04-19 15:33] LABS: BASOPHILS # (AUTO) 0.1 X10'3 (0-0.2); BASOPHILS % (AUTO) 0.5 % (0-1); EOSINOPHILS # (AUTO) 0.2 X10'3 (0-0.9); EOSINOPHILS % (AUTO) 2.1 % (0-6); HEMATOCRIT 43.7 % (35.0-45.0); HEMOGLOBIN 14.9 g/dl (12.0-16.0); LYMPHOCYTES # (AUTO) 1.1 X10'3 (1.1-4.8); LYMPHOCYTES % (AUTO) 9.9 % (21-51); MEAN CORPUSCULAR HEMOGLOBIN 32.7 PG (27.0-31.0); MEAN CORPUSCULAR HGB CONC 34.2 g/dL (33.0-36.5); MEAN CORPUSCULAR VOLUME 95.6 FL (78-98); MEAN PLATELET VOLUME 8.5 FL (7.4-10.4); MONOCYTES # (AUTO) 1.1 X10'3 (0-0.9); MONOCYTES % (AUTO) 9.3 % (2-12); NEUTROPHILS # (AUTO) 8.9 X10'3 (1.8-7.7); NEUTROPHILS % (AUTO) 78.2 % (42-75); PLATELET COUNT 240 X10'3 (140-440); RED BLOOD COUNT 4.57 X10'6 (4.20-5.60); RED CELL DISTRIBUTION WIDTH 13.2 % (11.5-14.5); WHITE BLOOD COUNT 11.4 X10'3 (4.5-11.0)
[2024-04-19 16:00] LABS: ALBUMIN 3.2 G/DL (3.4-5.0); ANION GAP 8 (8-16); BLOOD UREA NITROGEN 5 MG/DL (7-18); BUN/CREATININE RATIO 7.6 (10.0-20.0); CALCIUM 8.9 MG/DL (8.5-10.1); CHLORIDE 87 MMOL/L (99-107); CREATININE 0.66 MG/DL (0.40-0.90); GLUCOSE 109 MG/DL (70-104); POTASSIUM 3.8 MMOL/L (3.5-5.1); PRO BRAIN NATRIURETIC PEPTIDE 173 PG/ML (0-125); SODIUM 123 MMOL/L (135-145); TOTAL CARBON DIOXIDE 28.4 MMOL/L (24-32); eCRCL 73 ML/MIN; eGFR > 90 ML/MIN
[2024-04-19 18:21] VITALS: BP 124/82; PULSE 83; RESP 16; TEMP 97.8; O2SAT 97
[2024-04-19] MEDS ORDERED: AMOX-115 PO (18:34)
[2024-04-19] MEDS ORDERED: BENZ-38 PO (18:34)
[2024-04-19] MEDS ORDERED: PRED20TA PO (18:34)
[2024-04-19] MEDS ORDERED: SODI1TAB2 PO (18:34)
[2024-04-19] MEDS: benzonatate 100mg capsule PO ONE (18:48)
[2024-04-19] MEDS: sodium chloride 1gm tablet PO ONE (18:49)
[2024-04-19] MEDS: amox tr/potassium clavulanate 500mg/125mg TAB PO ONE (18:50)
[2024-04-19] MEDS: dexamethasone 4mg tablet PO ONE (18:50)
[2024-04-19] MEDS: ibuprofen tablet 400 MG TABLET PO ONE (18:50)
[2024-04-19] MEDS: ondansetron 4mg rapidly disintigrating tab PO ONE (18:51)
[2024-04-19] MEDS: acetaminophen 325mg tablet PO ONE (18:52)
== END 2024-04-19 19:00 | disposition home or self-care (01) ==
LOC: ER 13:46
DX: E87.1 Hypo-osmolality and hyponatremia (principal); J22 Unspecified acute lower respiratory infection; I10 Essential (primary) hypertension; J43.9 Emphysema, unspecified; F10.90 Alcohol use, unspecified, uncomplicated; Z88.0 Allergy status to penicillin; Z88.1 Allergy status to other antibiotic agents; Z88.2 Allergy status to sulfonamides; Z88.8 Allergy status to other drugs, medicaments and biological substances; Z90.710 Acquired absence of both cervix and uterus; Z98.51 Tubal ligation status
CPT/HCPCS: 36415; 71046; 80048; 83605; 83880; 85025; 87040; 99284